=== PATIENT | female | born 1980 | race Caucasian/White ===

== ENCOUNTER → 2016-12-06 | Outpatient (CLI) | payer OTHER ==
--- NOTE | 2016-12-06 07:54 | MM ---
Reason for exam: follow-up at short interval from prior study. Last mammogram was performed 5 months ago. History: Patient is nulliparous. Family history of breast cancer in grandmother at age 80. Taking hormonal contraceptives beginning at age 16. Physical Findings: Nurse did not find any significant physical abnormalities on exam. MG 3D Diag Mammo W/Cad LT CC and MLO view(s) were taken of the left breast. Prior study comparison: July 11, 2016, bilateral MG 3d diag mammo w/cad MIKEL. The breast tissue is heterogeneously dense. This may lower the sensitivity of mammography. Focal asymmetry similar to 07/11/16. No significant new findings when compared with previous films. These results were verbally communicated with the patient and result sheet given to the patient on 12/06/16. ASSESSMENT: Probably benign, BI-RAD 3 RECOMMENDATION: Follow-up diagnostic mammogram of both breasts in 6 months.
== END | disposition home or self-care (01) ==
LOC: RADMAMWWP 06:47
PROVIDERS: ATTEND Family Medicine
DX: R92.2 Inconclusive mammogram (principal)
CPT/HCPCS: G0206; G0279

== ENCOUNTER → 2017-05-04 | Outpatient (CLI) | payer OTHER ==
[2017-05-04 12:30] LABS: Cholesterol 183 mg/dL (<200); Glucose 77 mg/dL (74-99); HDL Cholesterol 94 mg/dL (40-60)
== END | disposition home or self-care (01) ==
LOC: LABWHC1 11:43
PROVIDERS: ATTEND Family Medicine
DX: Z00.00 Encounter for general adult medical examination without abnormal findings (principal)
CPT/HCPCS: 36415; 80061; 82947

== ENCOUNTER → 2017-06-10 | Outpatient (CLI) | payer OTHER ==
--- NOTE | 2017-06-14 12:15 | MM ---
Reason for exam: additional evaluation requested from prior study. Last mammogram was performed 6 months ago. History: Patient is nulliparous. Family history of breast cancer in grandmother at age 80. Taking hormonal contraceptives beginning at age 16. Physical Findings: Nurse Summary: 1cm nodule in the left breast at 1 o'clock (nurse dw). MG 3D Diag Mammo W/Cad MIKEL Bilateral CC and MLO view(s) were taken. Prior study comparison: December 06, 2016, left breast MG 3d diag mammo w/cad LT. July 11, 2016, bilateral MG 3d diag mammo w/cad MIKEL. The breast tissue is heterogeneously dense. This may lower the sensitivity of mammography. No suspicious abnormality. These results were verbally communicated with the patient and result sheet given to the patient on 06/10/17. ASSESSMENT: Incomplete: need additional imaging evaluation, BI-RAD 0 RECOMMENDATION: Ultrasound of the left breast. (palpable)
--- NOTE | 2017-06-14 12:16 | USB ---
Reason for exam: additional evaluation requested from abnormal screening. History: Patient is nulliparous. Family history of breast cancer in grandmother at age 80. Taking hormonal contraceptives beginning at age 16. US Breast Limited LT Left breast ultrasound demonstrates ductal ectasia at the nipple. These results were verbally communicated with the patient and result sheet given to the patient on 06/10/17. ASSESSMENT: Negative, BI-RAD 1 RECOMMENDATION: Routine screening mammogram of both breasts at age 40.
== END | disposition home or self-care (01) ==
LOC: RADMAMWWP 15:25
PROVIDERS: ATTEND Family Medicine
DX: R92.8 Other abnormal and inconclusive findings on diagnostic imaging of breast (principal)
CPT/HCPCS: 76642; G0204; G0279

== ENCOUNTER → 2018-01-27 | Outpatient (CLI) | payer OTHER ==
[2018-01-27 15:53] VITALS: BP 126/81; PULSE 87; RESP 18; TEMP 98.4; BMI 33.0
--- NOTE | 2018-01-27 16:00 | P.HPBAR ---
Bariatric H&P - History & Physicial H&P Date: 01/27/18 History & Physicial: Visit/CC: wants a fill Patient initial contact: Initial weight: Initial weight in pounds: Height: 5 ft 2.75 in Initial BMI: Last weight: 66 in October 2015 Current weight: 84.005 kg Current weight in pounds: 185.20 Current BMI: 33.0 [place] body weight (based on NIH guidelines): 51.596 kg Excess body weight loss: The patient is a 38 year-old F who presents for Bariatric Assessment. The patient presents fill. She is hungry and is gaining weight. Past Medical History Past Medical History: Thyroid Disorder History of Any Multi-Drug Resistant Organisms: None Reported Past Surgical History: Bariatric Surgery, Cholecystectomy, Tonsillectomy Additional Past Surgical History / Comment(s): lap band surgery 2009 Past Anesthesia/Blood Transfusion Reactions: No Reported Reaction Smoking Status: Never smoker Surgical - Exam Vital Signs Temp Pulse Resp BP 98.4 F 87 18 126/81 01/27/18 15:48 01/27/18 15:48 01/27/18 15:48 01/27/18 15:48 - General well developed, no distress - Eyes PERRL - ENT normal pinna - Neck no masses - Respiratory normal expansion - Cardiovascular Rhythm: regular - Abdomen Abdomen: soft, non tender Bariatric Assessment & Plan Plan: Patient's lap incision just. She had 1 mL added to her band. She currently 7 mL in the band. She was ill drink water without difficulty. She'll follow-up in 4 weeks. Bariatric Checklist Checklist: Plan: Checklist: EGD: 1. Hiatal hernia: 2. H. Pylori: HgbA1c: Vitamin D: Smoking: Never smoker Primary care physician referral: Dr Kristy Burgess Psychiatry clearance: Cardiology clearance: Sleep study: Diet journal: VTE risk score: VTE risk level: Rehab needs at discharge:
== END | disposition home or self-care (01) ==
LOC: BARWHC3 15:39
PROVIDERS: ATTEND Surgery
DX: Z48.815 Encounter for surgical aftercare following surgery on the digestive system (principal); Z98.84 Bariatric surgery status
CPT/HCPCS: 99202

== ENCOUNTER → 2018-02-24 | Outpatient (CLI) | payer OTHER ==
[2018-02-24 13:41] VITALS: BP 104/67; PULSE 86; RESP 16; TEMP 98.3; BMI 32.3
--- NOTE | 2018-02-24 15:49 | P.HPBAR ---
Bariatric H&P - History & Physicial H&P Date: 02/24/18 History & Physicial: Visit/CC: band adj Patient initial contact: Initial weight: 83.971 kg Initial weight in pounds: 185.13 Height: 5 ft 2.75 in Initial BMI: 33.0 Last weight: Current weight: 82.27 kg Current weight in pounds: 181.38 Current BMI: 32.3 [place] body weight (based on NIH guidelines): 51.596 kg Excess body weight loss: 5.2% The patient is a 38 year-old F who presents for Bariatric Assessment. The patient is requesting a fill of her band. She currently feels hungry. Past Medical History Past Medical History: Thyroid Disorder History of Any Multi-Drug Resistant Organisms: None Reported Past Surgical History: Bariatric Surgery, Cholecystectomy, Tonsillectomy Additional Past Surgical History / Comment(s): lap band surgery 2009 Past Anesthesia/Blood Transfusion Reactions: No Reported Reaction Smoking Status: Never smoker Surgical - Exam Vital Signs Temp Pulse Resp BP 98.3 F 86 16 104/67 02/24/18 13:39 02/24/18 13:39 02/24/18 13:39 02/24/18 13:39 - General well developed, no distress - Eyes PERRL - ENT normal pinna - Cardiovascular Rhythm: regular - Abdomen Abdomen: soft, non tender Bariatric Assessment & Plan Plan: The patient LAP-BAND was adjusted. She had 0.5 mL added to her band. She currently has 7.5 in the.. She was opened require without difficulty. She'll follow-up in 4 weeks. Bariatric Checklist Checklist: Plan: Checklist: EGD: 1. Hiatal hernia: 2. H. Pylori: HgbA1c: Vitamin D: Smoking: Never smoker Primary care physician referral: Dr Kristy Burgess Psychiatry clearance: Cardiology clearance: Sleep study: Diet journal: VTE risk score: VTE risk level: Rehab needs at discharge:
== END | disposition home or self-care (01) ==
LOC: BARWHC3 12:49
PROVIDERS: ATTEND Surgery
DX: Z46.51 Encounter for fitting and adjustment of gastric lap band (principal); T73.0XXA Starvation, initial encounter; Z98.84 Bariatric surgery status; Z90.49 Acquired absence of other specified parts of digestive tract
CPT/HCPCS: 99212

== ENCOUNTER → 2018-03-17 | Outpatient (CLI) | payer OTHER ==
[2018-03-17 13:41] VITALS: BP 116/66; PULSE 97; RESP 14; TEMP 98.4; BMI 31.2
--- NOTE | 2018-03-17 15:00 | P.HPBAR ---
Bariatric H&P - History & Physicial H&P Date: 03/17/18 History & Physicial: Visit/CC: band adjustment (needs small amount removed) Patient initial contact: Initial weight: 83.971 kg Initial weight in pounds: 185.12 Height: 5 ft 2.75 in Initial BMI: 33.0 Last weight: Current weight: 79.424 kg Current weight in pounds: 175.10 Current BMI: 31.2 [place] body weight (based on NIH guidelines): 51.596 kg Excess body weight loss: 14.0% The patient is a 38 year-old F who presents for Bariatric Assessment. Patient presents today for LAP-BAND follow-up. She has complaints of some dysphagia. Past Medical History Past Medical History: Thyroid Disorder History of Any Multi-Drug Resistant Organisms: None Reported Past Surgical History: Bariatric Surgery, Cholecystectomy, Tonsillectomy Additional Past Surgical History / Comment(s): lap band surgery 2009 Past Anesthesia/Blood Transfusion Reactions: No Reported Reaction Smoking Status: Never smoker Surgical - Exam Vital Signs Temp Pulse Resp BP 98.4 F 97 14 116/66 03/17/18 13:29 03/17/18 13:29 03/17/18 13:29 03/17/18 13:29 - General well developed, no distress - Abdomen Abdomen: soft, non tender Bariatric Assessment & Plan Plan: Patient LAP-BAND was adjusted. She had 0.3 mL removed from the band. She will follow-up in 4 weeks.. Patient was able to include developed. She currently is 7.2 mL in the band. Bariatric Checklist Checklist: Plan: Checklist: EGD: 1. Hiatal hernia: 2. H. Pylori: HgbA1c: Vitamin D: Smoking: Never smoker Primary care physician referral: Dr Kristy Burgess Psychiatry clearance: Cardiology clearance: Sleep study: Diet journal: VTE risk score: VTE risk level: Rehab needs at discharge:
== END | disposition home or self-care (01) ==
LOC: BARWHC3 13:06
PROVIDERS: ATTEND Surgery
DX: Z48.815 Encounter for surgical aftercare following surgery on the digestive system (principal); Z98.84 Bariatric surgery status
CPT/HCPCS: 99212

== ENCOUNTER → 2018-05-01 | Outpatient (CLI) | payer OTHER ==
--- NOTE | 2018-05-01 11:52 | XR ---
EXAMINATION TYPE: XR chest 2V DATE OF EXAM: 05/01/2018 COMPARISON: NONE HISTORY: Cough TECHNIQUE: Frontal and lateral views of the chest are obtained. FINDINGS: There is no focal air space opacity, pleural effusion, or pneumothorax seen. The cardiac silhouette size is within normal limits. The osseous structures are intact. Patient is post lap ban d. There may be a slight spinal curvature. Surgical clips present in the right upper quadrant. There is bronchial wall thickening. IMPRESSION: Correlate for bronchitis, reactive airways disease, follow-up as indicated
== END | disposition home or self-care (01) ==
LOC: RADXRMAIN 08:14
PROVIDERS: ATTEND Family Medicine
DX: R05 Cough (principal)
CPT/HCPCS: 71046

== ENCOUNTER → 2019-04-13 | Outpatient (CLI) | payer OTHER ==
[2019-04-13 15:57] VITALS: BP 132/83; PULSE 80; RESP 16; TEMP 98.3; BMI 31.6
--- NOTE | 2019-04-13 16:06 | P.HPBAR ---
Bariatric H&P - History & Physicial H&P Date: 04/13/19 History & Physicial: Visit/CC: Band follow-up having problems Patient initial contact: Initial weight: 83.971 kg Initial weight in pounds: 185.12 Height: 5 ft 2.75 in Initial BMI: 33.0 Last weight: Current weight: 80.286 kg Current weight in pounds: 177.00 Current BMI: 31.6 [place] body weight (based on NIH guidelines): 51.596 kg Excess body weight loss: 11.3% The patient is a 39 year-old F who presents for Bariatric Assessment. Patient presents today for lab band follow. She's had issues with dysphagia. Past Medical History Past Medical History: Thyroid Disorder History of Any Multi-Drug Resistant Organisms: None Reported Past Surgical History: Bariatric Surgery, Cholecystectomy, Tonsillectomy Additional Past Surgical History / Comment(s): lap band surgery 2009 Past Anesthesia/Blood Transfusion Reactions: No Reported Reaction Past Psychological History: No Psychological Hx Reported Smoking Status: Never smoker Past Alcohol Use History: None Reported Past Drug Use History: None Reported Surgical - Exam Vital Signs Temp Pulse Resp BP 98.3 F 80 16 132/83 04/13/19 15:54 04/13/19 15:54 04/13/19 15:54 04/13/19 15:54 - General well developed, well nourished, no distress - Abdomen Abdomen: soft, non tender Bariatric Assessment & Plan Plan: Patient LAP-BAND was accessed. 3 mL remove her band. She currently has 4.2 mL in the band. She'll follow-up in 2-4 weeks. Bariatric Checklist Checklist: Plan: Checklist: EGD: 1. Hiatal hernia: 2. H. Pylori: HgbA1c: Vitamin D: Smoking: Never smoker Primary care physician referral: Dr Kristy Burgess Psychiatry clearance: Cardiology clearance: Sleep study: Diet journal: VTE risk score: VTE risk level: Rehab needs at discharge:
== END ==
LOC: BARWHC3 14:43
PROVIDERS: ATTEND Surgery
DX: Z48.815 Encounter for surgical aftercare following surgery on the digestive system (principal); Z98.84 Bariatric surgery status; Z90.49 Acquired absence of other specified parts of digestive tract
CPT/HCPCS: 99212

== ENCOUNTER 2019-04-14 16:13 | Emergency (ER) | payer OTHER ==
[2019-04-14 16:38] VITALS: TEMP 98.4
--- NOTE | 2019-04-14 16:51 | ED ---
Chest Pain HPI - General Chief Complaint: Chest Pain Stated Complaint: CHEST PAIN Time Seen by Provider: 04/14/19 16:42 Source: patient Mode of arrival: wheelchair Limitations: no limitations - History of Present Illness Initial Comments: This is a 39-year-old female the ER for evaluation. She has had pain and presents today for evaluation presented with chest pain chest pain anterior left-sided going into left jaw. Patient's pain is been intermittent throughout the day. Patient was not doing any abnormal activity. Has no significant family history of heart disease. Patient does herself is history of LAP-BAND surgery, no history of smoking, no high cholesterol no diabetes no history of high blood pressure. Patient's pain is not currently there, no shortness of breath and no diaphoresis. MD Complaint: chest pain -: hour(s) Onset: during rest, during exertion Pain Location: substernal, left chest Pain Radiation: LUE, jaw/teeth Severity: moderate Severity scale (1-10): 4 Quality: tightness, aching Consistency: intermittent Improves With: nothing Worsens With: nothing Anginal Symptoms: nausea, other (Anxious) Treatments Prior to Arrival: none - Related Data Home Medications Medication Instructions Recorded Confirmed Levothyroxine Sodium [Synthroid] 112 mcg PO DAILY 01/24/18 04/14/19 Multivitamins, Thera [Multivitamin 1 tab PO HS 01/24/18 04/14/19 (formulary)] Cetirizine HCl [Zyrtec] 10 mg PO HS 04/14/19 04/14/19 Allergies Allergy/AdvReac Type Severity Reaction Status Date / Time codeine Allergy Rash/Hives Verified 04/14/19 17:05 Penicillins Allergy Rash/Hives Verified 04/14/19 17:05 Review of Systems ROS Statement: Those systems with pertinent positive or pertinent negative responses have been documented in the HPI. ROS Other: All systems not noted in ROS Statement are negative. EKG Findings - EKG Comments: EKG Findings:: EKG shows sinus rhythm rate of 81, [place] 120, QRS 92, QTc 448 Past Medical History Past Medical History: Thyroid Disorder History of Any Multi-Drug Resistant Organisms: None Reported Past Surgical History: Bariatric Surgery, Cholecystectomy, Tonsillectomy Additional Past Surgical History / Comment(s): lap band surgery 2009 Past Anesthesia/Blood Transfusion Reactions: No Reported Reaction Past Psychological History: No Psychological Hx Reported Smoking Status: Never smoker Past Alcohol Use History: None Reported Past Drug Use History: None Reported General Exam Limitations: no limitations General appearance: alert, in no apparent distress Head exam: Present: atraumatic, normocephalic, normal inspection Eye exam: Present: normal appearance, PERRL, EOMI. Absent: scleral icterus, conjunctival injection, periorbital swelling ENT exam: Present: normal exam, mucous membranes moist Neck exam: Present: normal inspection. Absent: tenderness, meningismus, lymphadenopathy Respiratory exam: Present: normal lung sounds bilaterally. Absent: respiratory distress, wheezes, rales, rhonchi, stridor Cardiovascular Exam: Present: regular rate, normal rhythm, normal heart sounds. Absent: systolic murmur, diastolic murmur, rubs, gallop, clicks GI/Abdominal exam: Present: soft, normal bowel sounds. Absent: distended, tenderness, guarding, rebound, rigid Extremities exam: Present: normal inspection, full ROM, normal capillary refill. Absent: tenderness, pedal edema, joint swelling, calf tenderness Back exam: Present: normal inspection Neurological exam: Present: alert, oriented X3, CN II-XII intact Psychiatric exam: Present: normal affect, normal mood Skin exam: Present: warm, dry, intact, normal color. Absent: rash Course Vital Signs 04/14/19 04/14/19 04/14/19 16:36 17:04 17:30 Temperature 98.4 F Pulse Rate 93 95 85 Respiratory 16 12 14 Rate Blood Pressure 130/75 O2 Sat by Pulse 100 100 100 Oximetry 04/14/19 04/14/19 04/14/19 18:00 18:52 19:00 Temperature Pulse Rate 91 83 80 Respiratory 16 17 18 Rate Blood Pressure O2 Sat by Pulse 100 100 100 Oximetry 04/14/19 19:18 Temperature Pulse Rate 84 Respiratory 16 Rate Blood Pressure 100/62 O2 Sat by Pulse 100 Oximetry - Reevaluation(s) Reevaluation #1: 04/14/19 16:50 Medical records reviewed Reevaluation #2: 04/14/19 20:25 Patient remains without chest pain Reevaluation #3: 04/14/19 20:25 Spoke with patient at length regarding risks and benefits days and cardiology versus discharge, patient prefers discharge at this time will return if symptoms recur Chest Pain MDM - MDM 39-year-old female the ER with doses of chest pain today one occurring at noon one occurring around 4:00 left-sided into jaw sharp second time is about 20 minutes symptoms resolved upon arrival to ER patient was chest pain-free. Throughout entire ER stay currently chest pain-free. Patient does not want stay in hospital for further evaluation currently. Patient has normal troponin, normal EKG and negative CTA of chest. Patient will be discharged home Disposition Clinical Impression: Chest pain Disposition: HOME SELF-CARE Condition: Good Instructions (If sedation given, give patient instructions): Chest Pain (ED) Is patient prescribed a controlled substance at d/c from ED?: No Referrals: Ted Vides MD [Primary Care Provider] - 1-2 days
[2019-04-14 17:28] LABS: Basophils # (A) 0.1 k/uL (0-0.2); Basophils % (A) 1 %; Eosinophils # (A) 0.3 k/uL (0-0.7); Eosinophils % (A) 3 %; HCT 41.2 % (34.0-46.0); HGB 13.9 gm/dL (11.4-16.0); Lymphocytes # (A) 2.2 k/uL (1.0-4.8); Lymphocytes % (A) 28 %; MCH 27.8 pg (25.0-35.0); MCHC 33.7 g/dL (31.0-37.0); MCV 82.5 fL (80.0-100.0); Mean Platelet Volume 7.1; Monocytes # (A) 0.4 k/uL (0-1.0); Monocytes % (A) 6 %; Neutrophils # (A) 4.9 k/uL (1.3-7.7); Neutrophils % (A) 61 %; Platelet Count 255 k/uL (150-450); RBC 4.99 m/uL (3.80-5.40)
[2019-04-14 17:42] LABS: Partial Thromboplastin Time 25.3 sec (22.0-30.0); Prothrombin Time 10.5 sec (9.0-12.0)
[2019-04-14 17:44] LABS: ALT 17 U/L (9-52); AST 28 U/L (14-36); African American GFR (CKD) >90 (>60 ml/min/1.73 sqM); Albumin 4.7 g/dL (3.5-5.0); Alkaline Phosphatase 60 U/L (38-126); Anion Gap 13 mmol/L; Blood Urea Nitrogen 11 mg/dL (7-17); Calcium 9.7 mg/dL (8.4-10.2); Carbon Dioxide 19 mmol/L (22-30); Chloride 106 mmol/L (98-107); Glucose 93 mg/dL (74-99); Magnesium 1.9 mg/dL (1.6-2.3); Potassium 4.2 mmol/L (3.5-5.1); Sodium 138 mmol/L (137-145); Total Bilirubin 0.7 mg/dL (0.2-1.3)
[2019-04-14 17:48] LABS: D-Dimer 0.76 mg/L FEU (<0.60)
--- NOTE | 2019-04-14 20:10 | CT ---
EXAMINATION TYPE: CT angio chest with contrast and with 3-D reconstruction renderings DATE OF EXAM: 04/14/2019 6:57 PM COMPARISON: None HISTORY: Pain CT DLP: 349.9 mGycm Automated exposure control for dose reduction was used. CONTRAST: CTA technique. 100 mL of Isovue 370, pulmonary embolism protocol. Three-D reconstructions. FINDINGS: LUNGS: The lungs are grossly clear, there is no concerning parenchymal mass or nodule identified. The re is no pleural effusion or pneumothorax seen. The tracheobronchial tree is patent. MEDIASTINUM: There is satisfactory enhancement of the pulmonary artery and its branches, there is no CT evidence for pulmonary embolism. No acute aortic findings. There are no greater than 1 cm hilar or mediastinal lymph nodes. There is mild cardiomegaly, no pericardial effusion. The thoracic esophagus is patulous throughout its thoracic extent, a nonspecific finding. OTHER: No additional significant abnormality is seen. IMPRESSION: NEGATIVE FOR PULMONARY EMBOLI OR OTHER ACUTE CHEST PROCESS.
[2019-04-14 20:44] VITALS: BP 118/62; PULSE 85; RESP 18
== END 2019-04-14 20:41 | disposition home or self-care (01) ==
LOC: EC 16:13
DX: R07.9 Chest pain, unspecified (principal); R11.0 Nausea; E07.9 Disorder of thyroid, unspecified; Z88.0 Allergy status to penicillin; Z88.5 Allergy status to narcotic agent; Z98.84 Bariatric surgery status; Z90.89 Acquired absence of other organs
CPT/HCPCS: 36415; 93005; 85379; 83880; 80053; 83690; 83735; 84484; 85025; 85610; 85730; 71275; 99285; Q9967

== ENCOUNTER → 2019-05-11 | Outpatient (CLI) | payer OTHER ==
[2019-05-11 15:42] VITALS: BP 121/82; PULSE 82; RESP 16; TEMP 98.5; BMI 32.8
--- NOTE | 2019-05-14 11:00 | P.HPBAR ---
Bariatric H&P - History & Physicial H&P Date: 05/11/19 History & Physicial: Visit/CC: Band Adj Patient initial contact: Initial weight: 83.971 kg Initial weight in pounds: 185.12 Height: 5 ft 2.75 in Initial BMI: 33.0 Last weight: Current weight: 83.461 kg Current weight in pounds: 184.00 Current BMI: 32.8 [place] body weight (based on NIH guidelines): 51.596 kg Excess body weight loss: 1.5% The patient is a 39 year-old F who presents for Bariatric Assessment. Patient presents today for LAP-BAND adjustment. She currently is hungry. Past Medical History Past Medical History: Thyroid Disorder History of Any Multi-Drug Resistant Organisms: None Reported Past Surgical History: Bariatric Surgery, Cholecystectomy, Tonsillectomy Additional Past Surgical History / Comment(s): lap band surgery 2009 Past Anesthesia/Blood Transfusion Reactions: No Reported Reaction Past Psychological History: No Psychological Hx Reported Smoking Status: Never smoker Past Alcohol Use History: None Reported Past Drug Use History: None Reported Surgical - Exam Vital Signs Temp Pulse Resp BP 98.5 F 82 16 121/82 05/11/19 15:40 05/11/19 15:40 05/11/19 15:40 05/11/19 15:40 - General well developed, well nourished - Abdomen Abdomen: soft, non tender Bariatric Assessment & Plan Plan: Patient's LAP-BAND was just. She has 1 mL added to the band. She can is 5.2 mL in the band. She'll follow-up in 4 weeks. Bariatric Checklist Checklist: Plan: Checklist: EGD: 1. Hiatal hernia: 2. H. Pylori: HgbA1c: Vitamin D: Smoking: Never smoker Primary care physician referral: Dr Kristy Burgess Psychiatry clearance: Cardiology clearance: Sleep study: Diet journal: VTE risk score: VTE risk level: Rehab needs at discharge:
== END | disposition home or self-care (01) ==
LOC: BARWHC3 14:45
PROVIDERS: ATTEND Surgery
DX: Z46.51 Encounter for fitting and adjustment of gastric lap band (principal); Z98.84 Bariatric surgery status; Z90.49 Acquired absence of other specified parts of digestive tract; Z90.89 Acquired absence of other organs
CPT/HCPCS: 99212

== ENCOUNTER → 2019-09-28 | Outpatient (CLI) | payer OTHER ==
[2019-09-28 14:10] VITALS: BP 113/76; PULSE 88; RESP 16; TEMP 98; BMI 35.6
--- NOTE | 2019-10-05 14:38 | P.HPBAR ---
Bariatric H&P - History & Physicial H&P Date: 09/28/19 History & Physicial: Visit/CC: band adj Patient initial contact: Initial weight: 83.971 kg Initial weight in pounds: 185.12 Height: 5 ft 2.75 in Initial BMI: 33.0 Last weight: Current weight: 90.718 kg Current weight in pounds: 200.00 Current BMI: 35.6 [place] body weight (based on NIH guidelines): 51.596 kg Excess body weight loss: The patient is a 39 year-old F who presents for Bariatric Assessment. Patient presents today for her LAP-BAND adjustment. She is currently hungry and requesting a fill. Past Medical History Past Medical History: Thyroid Disorder History of Any Multi-Drug Resistant Organisms: None Reported Past Surgical History: Bariatric Surgery, Cholecystectomy, Tonsillectomy Additional Past Surgical History / Comment(s): lap band surgery 2009 Past Anesthesia/Blood Transfusion Reactions: No Reported Reaction Smoking Status: Never smoker Surgical - Exam Vital Signs Temp Pulse Resp BP 98 F 88 16 113/76 09/28/19 14:08 09/28/19 14:08 09/28/19 14:08 09/28/19 14:08 - General well developed, well nourished, no distress - Eyes PERRL - ENT normal pinna - Neck no masses - Respiratory normal expansion - Cardiovascular Rhythm: regular - Abdomen Abdomen: soft, non tender Bariatric Assessment & Plan Plan: Patient's lap band adjustment. She had 0.5 mL added to her band. She'll follow-up in 4 weeks. Bariatric Checklist Checklist: Plan: Checklist: EGD: 1. Hiatal hernia: 2. H. Pylori: HgbA1c: Vitamin D: Smoking: Never smoker Primary care physician referral: Dr Kristy Burgess Psychiatry clearance: Cardiology clearance: Sleep study: Diet journal: VTE risk score: VTE risk level: Rehab needs at discharge:
== END | disposition home or self-care (01) ==
LOC: BARWHC3 13:43
PROVIDERS: ATTEND Surgery
DX: Z46.51 Encounter for fitting and adjustment of gastric lap band (principal); Z98.84 Bariatric surgery status; Z90.49 Acquired absence of other specified parts of digestive tract
CPT/HCPCS: 99212

== ENCOUNTER → 2020-03-30 | Outpatient (CLI) | payer OTHER ==
[2020-03-30 10:57] LABS: Basophils # (A) 0.1 k/uL (0-0.2); Basophils % (A) 1 %; Eosinophils # (A) 0.4 k/uL (0-0.7); Eosinophils % (A) 5 %; HCT 42.3 % (34.0-46.0); HGB 13.4 gm/dL (11.4-16.0); Lymphocytes # (A) 2.6 k/uL (1.0-4.8); Lymphocytes % (A) 33 %; MCH 27.1 pg (25.0-35.0); MCHC 31.7 g/dL (31.0-37.0); MCV 85.3 fL (80.0-100.0); Mean Platelet Volume 7.3; Monocytes # (A) 0.5 k/uL (0-1.0); Monocytes % (A) 7 %; Neutrophils % (A) 52 %; Platelet Count 284 k/uL (150-450); RBC 4.96 m/uL (3.80-5.40); RDW 12.6 % (11.5-15.5); WBC 7.7 k/uL (3.8-10.6)
[2020-03-30 16:54] LABS: African American GFR (CKD) 106.9 (60.0-200.0); Albumin 4.4 g/dL (3.80-4.90); Anion Gap 11.2 mmol/L (4.00-12.00); BUN/Creat Ratio 13.75 Ratio (12.00-20.00); Calcium 9.3 mg/dL (8.7-10.3); Carbon Dioxide 22.8 mmol/L (21.6-31.8); Chol/HDL Ratio 3.2; Globulin 2.2 g/dL (1.6-3.3); LDL Cholesterol,Calculated 105.4 mg/dL (0.0-131.0); Non-African American GFR(CKD) 92.2 (60.0-200.0); Potassium 4.2 mmol/L (3.5-5.5); Total Bilirubin 0.6 mg/dL (0.3-1.2); Total Protein 6.6 g/dL (6.2-8.2); VLDL Calculation 26.6 mg/dL (5.00-40.00)
== END | disposition home or self-care (01) ==
LOC: LABWHC1 09:19
PROVIDERS: ATTEND Family Medicine
DX: Z00.00 Encounter for general adult medical examination without abnormal findings (principal); E03.9 Hypothyroidism, unspecified
CPT/HCPCS: 36415; 80053; 80061; 84443; 85025

== ENCOUNTER → 2020-04-22 | Outpatient (CLI) | payer OTHER ==
--- NOTE | 2020-04-27 09:13 | MM ---
Reason for exam: screening (asymptomatic). Last mammogram was performed 2 years and 10 months ago. History: Patient is nulliparous. Family history of breast cancer in grandmother at age 80. Taking hormonal contraceptives beginning at age 16. Physical Findings: A clinical breast exam by your physician is recommended on an annual basis and results should be correlated with mammographic findings. MG 3D Screening Mammo W/Cad Bilateral CC and MLO view(s) were taken. Prior study comparison: June 10, 2017, bilateral MG 3d diag mammo w/cad MIKEL. December 06, 2016, left breast MG 3d diag mammo w/cad LT. The breast tissue is heterogeneously dense. This may lower the sensitivity of mammography. Focal asymmetry right lower MLO view. This finding is changed when compared with previous exams. ASSESSMENT: Probably benign, BI-RAD 3 RECOMMENDATION: Follow-up diagnostic mammogram of the right breast in 6 months.
== END | disposition home or self-care (01) ==
LOC: RADMAMWWP 07:39
PROVIDERS: ATTEND Family Medicine
DX: Z12.31 Encounter for screening mammogram for malignant neoplasm of breast (principal)
CPT/HCPCS: 77063; 77067

== ENCOUNTER → 2020-09-07 | Outpatient (CLI) | payer OTHER ==
--- NOTE | 2020-09-08 08:46 | MM ---
Reason for exam: follow-up at short interval from prior study. Last mammogram was performed 5 months ago. History: Patient is nulliparous. Family history of breast cancer in grandmother at age 80. Took hormonal contraceptives for 10 years beginning at age 16. Physical Findings: Nurse did not find any significant physical abnormalities on exam. MG 3D Diag Mammo W/Cad RT CC, MLO, and spot compression CC view(s) were taken of the right breast. Prior study comparison: April 22, 2020, bilateral MG 3d screening mammo w/cad. June 10, 2017, bilateral MG 3d diag mammo w/cad MIKEL. The breast tissue is heterogeneously dense. This may lower the sensitivity of mammography. Developing asymmetry medial anterior MLO, not on compression. Focal asymmetry lower MLO, increased density, decreased on compression. These results were verbally communicated with the patient and result sheet given to the patient on 09/07/20. ASSESSMENT: Probably benign, BI-RAD 3 RECOMMENDATION: Follow-up diagnostic mammogram of both breasts in 6 months.
== END | disposition home or self-care (01) ==
LOC: RADMAMWWP 14:06
PROVIDERS: ATTEND Obstetrics & Gynecology
DX: R92.8 Other abnormal and inconclusive findings on diagnostic imaging of breast (principal)
CPT/HCPCS: 77061; 77065

== ENCOUNTER → 2021-02-10 | Outpatient (CLI) | payer OTHER ==
--- NOTE | 2021-02-13 08:03 | MM ---
Reason for exam: follow-up at short interval from prior study. Last mammogram was performed 5 months ago. History: Patient is nulliparous. Family history of breast cancer in grandmother at age 80. Took hormonal contraceptives for 10 years beginning at age 16. Physical Findings: Nurse did not find any significant physical abnormalities on exam. MG 3D Diag Mammo W/Cad MIKEL Bilateral CC and MLO view(s) were taken. Prior study comparison: September 07, 2020, right breast MG 3d diag mammo w/cad RT. April 22, 2020, bilateral MG 3d screening mammo w/cad. The breast tissue is heterogeneously dense. This may lower the sensitivity of mammography. These results were verbally communicated with the patient and result sheet given to the patient on 02/10/21. ASSESSMENT: Negative, BI-RAD 1 RECOMMENDATION: Routine screening mammogram of both breasts in 1 year.
== END | disposition home or self-care (01) ==
LOC: RADMAMWWP 14:17
PROVIDERS: ATTEND Surgery
DX: R92.2 Inconclusive mammogram (principal); Z80.3 Family history of malignant neoplasm of breast
CPT/HCPCS: 77062; 77066

== ENCOUNTER → 2021-05-30 | Outpatient (CLI) | payer BC | END | disposition home or self-care (01) | LOC: LABWHC1 07:35 | PROVIDERS: ATTEND Family Medicine | DX: E55.9 Vitamin D deficiency, unspecified (principal) | CPT/HCPCS: 36415; 82306 ==

== ENCOUNTER → 2021-09-21 | Outpatient (CLI) | payer OTHER | END | disposition home or self-care (01) | LOC: LABWHC1 12:57 | PROVIDERS: ATTEND Family Medicine | DX: E55.9 Vitamin D deficiency, unspecified (principal) | CPT/HCPCS: 36415; 82306 ==

== ENCOUNTER 2021-10-05 08:40 | Emergency (ER) | payer OTHER ==
[2021-10-05] MEDS ORDERED: SODIUM CHLORIDE 0.9% 500 ML 500 ML IV STA (08:54)
--- NOTE | 2021-10-05 08:59 | ED ---
General Adult HPI - General Chief complaint: Arrhythmia/Palpitations Stated complaint: fast heart rate Time Seen by Provider: 10/05/21 08:45 Source: patient, RN notes reviewed, old records reviewed Mode of arrival: ambulatory Limitations: no limitations - History of Present Illness Initial comments: This is a 41-year-old female presents emergency Department states that for the last 3 or 4 days she's been having palpitations. Patient states her heart rate gets up to 137 beats a minute. Patient states she was seen at [facility] couple of days ago and since he continues she states she decided come in here. Patient denies any drug use. Patient states she does have a thyroid issue and takes thyroid medication. Patient denies any recent fever chills or cough. Patient denies any chest pain or shortness of breath. Patient denies abdominal pain patient denies nausea vomiting or diarrhea. Patient denies any swelling to legs or calf tenderness. - Related Data Home Medications Medication Instructions Recorded Confirmed Multivitamins, Thera [Multivitamin 1 tab PO W/SUPPER 01/24/18 10/05/21 (formulary)] Cetirizine HCl [Zyrtec] 10 mg PO DAILY 04/14/19 10/05/21 Ergocalciferol [Vitamin D2 (1250 1,250 mcg PO NGUYEN 10/05/21 10/05/21 Mcg = 42303 Iu)] Levothyroxine Sodium [Synthroid] 100 mcg PO DAILY 10/05/21 10/05/21 Metoprolol Succinate [Toprol XL] 50 mg PO DAILY PRN 10/05/21 10/05/21 Allergies Allergy/AdvReac Type Severity Reaction Status Date / Time codeine Allergy Rash/Hives Verified 10/05/21 09:30 Penicillins Allergy Rash/Hives Verified 10/05/21 09:30 Review of Systems ROS Statement: Those systems with pertinent positive or pertinent negative responses have been documented in the HPI. ROS Other: All systems not noted in ROS Statement are negative. Past Medical History Past Medical History: Thyroid Disorder Additional Past Medical History / Comment(s): tachycardia History of Any Multi-Drug Resistant Organisms: None Reported Past Surgical History: Bariatric Surgery, Cholecystectomy, Tonsillectomy Additional Past Surgical History / Comment(s): lap band surgery 2009 Past Anesthesia/Blood Transfusion Reactions: No Reported Reaction Past Psychological History: No Psychological Hx Reported Smoking Status: Never smoker Past Alcohol Use History: None Reported Past Drug Use History: None Reported General Exam - General Exam Comments Initial Comments: GENERAL: Patient is well-developed and well-nourished. Patient is nontoxic and well-hydr ated and is in no acute distress. ENT: Neck is soft and supple. No significant lymphadenopathy is noted. Oropharynx is clear. Moist mucous membranes. Neck has full range of motion without eliciting any pain. EYES: The sclera were anicteric and conjunctiva were pink and moist. Extraocular mo vements were intact and pupils were equal round and reactive to light. Eyelids were unremarkable. PULMONARY: Unlabored respirations. Good breath sounds bilaterally. No audible rales rhonchi or wheezing was noted. CARDIOVASCULAR: Patient is tachycardic at about 120 beats a minute ABDOMEN: Soft and nontender with normal bowel sounds. SKIN: Skin is clear with no lesions or rashes and otherwise unremarkable. NEUROLOGIC: Patient is alert and oriented x3. Cranial nerves II through XII are grossly intact. Motor and sensory are also intact. Normal speech, volume and content. Symmetrical smile. MUSCULOSKELETAL: Normal extremities with adequate strength and full range of motion. No lower extremity swelling or edema. No calf tenderness. LYMPHATICS: No significant lymphadenopathy is noted PSYCHIATRIC: Normal psychiatric evaluation. Limitations: no limitations Course Vital Signs 10/05/21 10/05/21 08:43 11:40 Temperature 97.5 F L Pulse Rate 116 H 86 Respiratory 20 18 Rate Blood Pressure 148/83 116/77 O2 Sat by Pulse 99 100 Oximetry Medical Decision Making - Medical Decision Making EKG shows sinus rhythm at 99 bpm MS interval 239 0 68 QT interval 341 QTC is 397 patient's EKG shows no ST segment elevation or depression. Patient's chest x-ray shows no acute abnormality. I will back into reevaluate the patient she stated she felt at her baseline no longer is feeling any palpitations. Patient will follow up with cardiology. - Lab Data Result diagrams: 10/05/21 09:08 10/05/21 09:08 Lab Results 10/05/21 10/05/21 10/05/21 Range/Units 09:08 09:08 09:08 WBC 9.8 (3.8-10.6) k/uL RBC 4.84 (3.80-5.40) m/uL Hgb 13.7 (11.4-16.0) gm/dL Hct 40.7 (34.0-46.0) % MCV 84.1 (80.0-100.0) fL MCH 28.4 (25.0-35.0) pg MCHC 33.8 (31.0-37.0) g/dL RDW 13.0 (11.5-15.5) % Plt Count 319 (150-450) k/uL MPV 7.7 Neutrophils % 75 % Lymphocytes % 18 % Monocytes % 5 % Eosinophils % 1 % Basophils % 0 % Neutrophils # 7.3 (1.3-7.7) k/uL Lymphocytes # 1.8 (1.0-4.8) k/uL Monocytes # 0.5 (0-1.0) k/uL Eosinophils # 0.1 (0-0.7) k/uL Basophils # 0.0 (0-0.2) k/uL PT 10.7 (9.0-12.0) sec INR 1.0 (<1.2) APTT 24.7 (22.0-30.0) sec Sodium (137-145) mmol/L Potassium (3.5-5.1) mmol/L Chloride (98-107) mmol/L Carbon Dioxide (22-30) mmol/L Anion Gap mmol/L BUN (7-17) mg/dL Creatinine (0.52-1.04) mg/dL Est GFR (CKD-EPI)AfAm (>60 ml/min/1.73 sqM) Est GFR (CKD-EPI)NonAf (>60 ml/min/1.73 sqM) Glucose (74-99) mg/dL Calcium (8.4-10.2) mg/dL Magnesium (1.6-2.3) mg/dL Total Bilirubin (0.2-1.3) mg/dL AST (14-36) U/L ALT (4-34) U/L Alkaline Phosphatase (38-126) U/L Troponin I (0.000-0.034) ng/mL Total Protein (6.3-8.2) g/dL Albumin (3.5-5.0) g/dL TSH (0.465-4.680) mIU/L Urine Color Light Yellow Urine Appearance Cloudy H (Clear) Urine pH 5.5 (5.0-8.0) Ur Specific [place] 1.002 (1.001-1.035) Urine Protein Negative (Negative) Urine Glucose (UA) Negative (Negative) Urine Ketones Negative (Negative) Urine Blood Negative (Negative) Urine Nitrite Negative (Negative) Urine Bilirubin Negative (Negative) Urine Urobilinogen <2.0 (<2.0) mg/dL Ur Leukocyte Esterase Large H (Negative) Urine WBC 10 H (0-5) /hpf Ur Squamous Epith Cells 5 H (0-4) /hpf Amorphous Sediment Occasional H (None) /hpf Urine Bacteria Few H (None) /hpf Urine Opiates Screen Not Detected (NotDetected) Ur Oxycodone Screen Not Detected (NotDetected) Urine Methadone Screen Not Detected (NotDetected) Ur Propoxyphene Screen Not Detected (NotDetected) Ur Barbiturates Screen Not Detected (NotDetected) U Tricyclic Antidepress Not Detected (NotDetected) Ur Phencyclidine Scrn Not Detected (NotDetected) Ur Amphetamines Screen Not Detected (NotDetected) U Methamphetamines Scrn Not Detected (NotDetected) U Benzodiazepines Scrn Not Detected (NotDetected) Urine Cocaine Screen Not Detected (NotDetected) U Marijuana (THC) Screen Not Detected (NotDetected) Coronavirus (PCR) (Not Detectd) 10/05/21 10/05/21 10/05/21 Range/Units 09:08 09:08 09:08 WBC (3.8-10.6) k/uL RBC (3.80-5.40) m/uL Hgb (11.4-16.0) gm/dL Hct (34.0-46.0) % MCV (80.0-100.0) fL MCH (25.0-35.0) pg MCHC (31.0-37.0) g/dL RDW (11.5-15.5) % Plt Count (150-450) k/uL MPV Neutrophils % % Lymphocytes % % Monocytes % % Eosinophils % % Basophils % % Neutrophils # (1.3-7.7) k/uL Lymphocytes # (1.0-4.8) k/uL Monocytes # (0-1.0) k/uL Eosinophils # (0-0.7) k/uL Basophils # (0-0.2) k/uL PT (9.0-12.0) sec INR (<1.2) APTT (22.0-30.0) sec Sodium 136 L (137-145) mmol/L Potassium 4.0 (3.5-5.1) mmol/L Chloride 108 H (98-107) mmol/L Carbon Dioxide 20 L (22-30) mmol/L Anion Gap 8 mmol/L BUN 10 (7-17) mg/dL Creatinine 0.68 (0.52-1.04) mg/dL Est GFR (CKD-EPI)AfAm >90 (>60 ml/min/1.73 sqM) Est GFR (CKD-EPI)NonAf >90 (>60 ml/min/1.73 sqM) Glucose 120 H (74-99) mg/dL Calcium 9.6 (8.4-10.2) mg/dL Magnesium 1.9 (1.6-2.3) mg/dL Total Bilirubin 0.7 (0.2-1.3) mg/dL AST 27 (14-36) U/L ALT 23 (4-34) U/L Alkaline Phosphatase 68 (38-126) U/L Troponin I <0.012 (0.000-0.034) ng/mL Total Protein 7.6 (6.3-8.2) g/dL Albumin 4.5 (3.5-5.0) g/dL TSH 2.880 (0.465-4.680) mIU/L Urine Color Urine Appearance (Clear) Urine pH (5.0-8.0) Ur Specific [place] (1.001-1.035) Urine Protein (Negative) Urine Glucose (UA) (Negative) Urine Ketones (Negative) Urine Blood (Negative) Urine Nitrite (Negative) Urine Bilirubin (Negative) Urine Urobilinogen (<2.0) mg/dL Ur Leukocyte Esterase (Negative) Urine WBC (0-5) /hpf Ur Squamous Epith Cells (0-4) /hpf Amorphous Sediment (None) /hpf Urine Bacteria (None) /hpf Urine Opiates Screen (NotDetected) Ur Oxycodone Screen (NotDetected) Urine Methadone Screen (NotDetected) Ur Propoxyphene Screen (NotDetected) Ur Barbiturates Screen (NotDetected) U Tricyclic Antidepress (NotDetected) Ur Phencyclidine Scrn (NotDetected) Ur Amphetamines Screen (NotDetected) U Methamphetamines Scrn (NotDetected) U Benzodiazepines Scrn (NotDetected) Urine Cocaine Screen (NotDetected) U Marijuana (THC) Screen (NotDetected) Coronavirus (PCR) Not Detected (Not Detectd) Disposition Clinical Impression: Palpitations Disposition: HOME SELF-CARE Condition: Poor Instructions (If sedation given, give patient instructions): Heart Palpitations (ED) Is patient prescribed a controlled substance at d/c from ED?: No Referrals: Dorcas Rey MD [STAFF PHYSICIAN] - 1-2 days Time of Disposition: 12:24
--- NOTE | 2021-10-05 09:52 | XR ---
EXAMINATION TYPE: XR chest 2V DATE OF EXAM: 10/05/2021 COMPARISON: 05/01/2018 TECHNIQUE: PA and lateral views submitted. HISTORY: Dysrhythmia FINDINGS: The lungs are clear and there is no pneumothorax, pleural effusion, or focal pneumonia. Heart size normal. No overt failure. IMPRESSION: 1. No acute process.
[2021-10-05 09:57] LABS: Basophils % (A) 0 %; Eosinophils # (A) 0.1 k/uL (0-0.7); Eosinophils % (A) 1 %; HCT 40.7 % (34.0-46.0); HGB 13.7 gm/dL (11.4-16.0); Lymphocytes # (A) 1.8 k/uL (1.0-4.8); Lymphocytes % (A) 18 %; MCH 28.4 pg (25.0-35.0); MCHC 33.8 g/dL (31.0-37.0); MCV 84.1 fL (80.0-100.0); Mean Platelet Volume 7.7; Monocytes # (A) 0.5 k/uL (0-1.0); Monocytes % (A) 5 %; Neutrophils # (A) 7.3 k/uL (1.3-7.7); Neutrophils % (A) 75 %; Platelet Count 319 k/uL (150-450); RBC 4.84 m/uL (3.80-5.40); WBC 9.8 k/uL (3.8-10.6)
[2021-10-05 10:07] LABS: ALT 23 U/L (4-34); AST 27 U/L (14-36); African American GFR (CKD) >90 (>60 ml/min/1.73 sqM); Albumin 4.5 g/dL (3.5-5.0); Alkaline Phosphatase 68 U/L (38-126); Anion Gap 8 mmol/L; Blood Urea Nitrogen 10 mg/dL (7-17); Calcium 9.6 mg/dL (8.4-10.2); Carbon Dioxide 20 mmol/L (22-30); Chloride 108 mmol/L (98-107); Glucose 120 mg/dL (74-99); Magnesium 1.9 mg/dL (1.6-2.3); Non-African American GFR(CKD) >90 (>60 ml/min/1.73 sqM); Sodium 136 mmol/L (137-145); Total Bilirubin 0.7 mg/dL (0.2-1.3); Total Protein 7.6 g/dL (6.3-8.2)
[2021-10-05 10:11] LABS: Amorphous Sediment,Urine Occasional /hpf; Appearance,Urine Cloudy (Clear); Bacteria,Urine Few /hpf; Bilirubin,Urine Negative (Negative); Blood,Urine Negative (Negative); Color,Urine Light Yellow; Glucose,Urine (UA) Negative (Negative); Ketones,Urine Negative (Negative); Leukocyte Esterase,Urine Large (Negative); Nitrite,Urine Negative (Negative); PH, Urine 5.5 (5.0-8.0); Partial Thromboplastin Time 24.7 sec (22.0-30.0); Protein,Urine Negative (Negative); Prothrombin Time 10.7 sec (9.0-12.0); Specific Gravity,Urine 1.002 (1.001-1.035); Squamous Epithelial Cell,Urine 5 /hpf (0-4); Urobilinogen,Urine <2.0 mg/dL (<2.0); WBC,Urine 10 /hpf (0-5)
[2021-10-05 10:24] LABS: Amphetamine Screen,Urine Not Detected (NotDetected); Barbiturate Screen,Urine Not Detected (NotDetected); Benzodiazepines Screen,Urine Not Detected (NotDetected); Cocaine Screen,Urine Not Detected (NotDetected); Methadone Screen, Urine Not Detected (NotDetected); Opiate Screen,Urine Not Detected (NotDetected); Oxycodone Screen, Urine Not Detected (NotDetected); Phencyclidine Screen,Urine Not Detected (NotDetected); Tricyclic Antidepressant,Urine Not Detected (NotDetected); Urn Cannabinoid Scrn Not Detected (NotDetected)
[2021-10-05 11:41] VITALS: RESP 18
[2021-10-05 12:39] VITALS: BP 118/74; PULSE 90; TEMP 97.8
== END 2021-10-05 12:37 | disposition home or self-care (01) ==
LOC: EC 08:40
DX: R00.2 Palpitations (principal)
CPT/HCPCS: 36415; 71046; 80053; 80306; 81001; 83735; 84443; 84484; 85025; 85610; 85730; 87635; 93005; 99285

== ENCOUNTER 2021-10-14 09:09 | Emergency (ER) | payer OTHER ==
--- NOTE | 2021-10-14 09:53 | ED ---
General Adult HPI - General Chief complaint: Chest Pain Stated complaint: Chest Pain/High HR Time Seen by Provider: 10/14/21 09:18 Source: patient Mode of arrival: ambulatory Limitations: no limitations - History of Present Illness Initial comments: Dictation was produced using [employer] dictation software. please excuse any grammatical, word or spelling errors. Chief Complaint: 41-year-old femalepast medical history presents emergency department for chest pain palpitations History of Present Illness: 41-year-old female she is here for her third visit to be evaluated for palpitations. This morning states that her symptoms are dif ferent is not she has chest pain. States it is a slight pressure substernal area. It lasted briefly and resolved on its own. Patient's asymptomatic at this time. She had a set palpitations that occur for several minutes proximally one every 3-4 days. She seen in our emergency department 9 days ago and was given referral to cardiology. She did follow up with cardiology and has a Holter monitor and she is wearing. She is also now on metoprolol 50 mg daily prescribed by cardiology. Patient is here because she wants to make sure that nothing life-threatening securing. Patient's short of breath at the moment. She has no symptoms whatsoeverat the bedside. During these palpation episodes she states that her heart rate goes anywhere between 130-150 bpm The ROS documented in this emergency department record has been reviewed and confirmed by me. Those systems with pertinent positive or negative responses have been documented in the HPI. All other systems are other negative and/or noncontributory. PHYSICAL EXAM: General Impression: Alert and oriented x3, not in acute distress HEENT: Normocephalic atraumatic, extra-ocular movements intact, pupils equal and reactive to light bilaterally, mucous membranes moist. Cardiovascular: Heart regular rate and rhythm Chest: Able to complete full sentences, no retractions, no tachypnea Abdomen: abdomen soft, non-tender, non-distended, no organomegaly Musculoskeletal: Pulses present and equal in all extremities, no peripheral edema Motor: no focal deficits noted Neurological: CN II-XII grossly intact, no focal motor or sensory deficits noted Skin: Intact with no visualized rashes Psych: Normal affect and mood ED course: 41-year-old feel presents emergency department for chest pain or palpitations. Her pain is atypical. She is asymptomatic at bedside. Chest pain is atypical with typical features. Vital signs upon arrival are within acceptable limits. EKG does not show any signs of ischemia or infarction. No tachydysrhythmia. Laboratory evaluation obtained. CBC, metabolic panel and electrolytes [place] enzymes are all negative. TSH is normal. Patient observed in emergency department for approximately 2 hours and 45 minutes. She is reevaluating 11:50 PM. She states she did have some short episode of palpitations while in the emergency department. traffic and transport planner was reviewed. There were some acceler ations from heart rate of 70-90 bpm however was still sinus rhythm. Disposition options were discussed. She is continued to be asymptomatic. She does have outpatient follow-up. She does understand that she can return to emergency department if she has any issues. Patient agreeable to discharge. EKG interpretation: Ventricular rate 72, sinus rhythm,. Interval 136, QRS 93, QTc 416. No DC prolongation, no QTC prolongation, no ST or T-wave changes noted. Overall, this EKG is unremarkable - Related Data Home Medications Medication Instructions Recorded Confirmed Multivitamins, Thera [Multivitamin 1 tab PO W/SUPPER 01/24/18 10/14/21 (formulary)] Cetirizine HCl [Zyrtec] 10 mg PO DAILY 04/14/19 10/14/21 Ergocalciferol [Vitamin D2 (1250 1,250 mcg PO NGUYEN 10/05/21 10/14/21 Mcg = 45145 Iu)] Levothyroxine Sodium [Synthroid] 100 mcg PO DAILY 10/05/21 10/14/21 Metoprolol Succinate [Toprol XL] 25 mg PO DAILY PRN 10/14/21 10/14/21 Nitrofurantoin Monohyd/M-Cryst 100 mg PO BID 10/14/21 10/14/21 [Macrobid] Phenazopyridine [Pyridium] 200 mg PO TID PRN 10/14/21 10/14/21 Allergies Allergy/AdvReac Type Severity Reaction Status Date / Time codeine Allergy Rash/Hives Verified 10/14/21 10:14 Penicillins Allergy Rash/Hives Verified 10/14/21 10:14 Review of Systems ROS Statement: Those systems with pertinent positive or pertinent negative responses have been documented in the HPI. ROS Other: All systems not noted in ROS Statement are negative. Past Medical History Past Medical History: Thyroid Disorder Additional Past Medical History / Comment(s): tachycardia History of Any Multi-Drug Resistant Organisms: None Reported Past Surgical History: Bariatric Surgery, Cholecystectomy, Tonsillectomy Additional Past Surgical History / Comment(s): lap band surgery 2009 Past Anesthesia/Blood Transfusion Reactions: No Reported Reaction Past Psychological History: No Psychological Hx Reported Smoking Status: Never smoker Past Alcohol Use History: None Reported Past Drug Use History: None Reported General Exam Limitations: no limitations Course Vital Signs 10/14/21 10/14/21 09:15 10:29 Temperature 98.5 F Pulse Rate 84 81 Respiratory 20 16 Rate Blood Pressure 128/86 114/63 O2 Sat by Pulse 100 98 Oximetry Medical Decision Making - Lab Data Result diagrams: 10/14/21 09:51 10/14/21 09:51 Lab Results 10/14/21 10/14/21 10/14/21 Range/Units 09:51 09:51 09:51 WBC 6.9 (3.8-10.6) k/uL RBC 4.91 (3.80-5.40) m/uL Hgb 13.9 (11.4-16.0) gm/dL Hct 41.4 (34.0-46.0) % MCV 84.2 (80.0-100.0) fL MCH 28.2 (25.0-35.0) pg MCHC 33.5 (31.0-37.0) g/dL RDW 13.4 (11.5-15.5) % Plt Count 316 (150-450) k/uL MPV 7.3 Neutrophils % 56 % Lymphocytes % 34 % Monocytes % 5 % Eosinophils % 2 % Basophils % 1 % Neutrophils # 3.9 (1.3-7.7) k/uL Lymphocytes # 2.4 (1.0-4.8) k/uL Monocytes # 0.4 (0-1.0) k/uL Eosinophils # 0.1 (0-0.7) k/uL Basophils # 0.1 (0-0.2) k/uL Sodium 140 (137-145) mmol/L Potassium 3.8 (3.5-5.1) mmol/L Chloride 109 H (98-107) mmol/L Carbon Dioxide 22 (22-30) mmol/L Anion Gap 9 mmol/L BUN 11 (7-17) mg/dL Creatinine 0.77 (0.52-1.04) mg/dL Est GFR (CKD-EPI)AfAm >90 (>60 ml/min/1.73 sqM) Est GFR (CKD-EPI)NonAf >90 (>60 ml/min/1.73 sqM) Glucose 104 H (74-99) mg/dL Calcium 9.4 (8.4-10.2) mg/dL Ionized Calcium Shanelle 5.0 (4.5-5.3) mg/dL Magnesium 2.0 (1.6-2.3) mg/dL Troponin I <0.012 (0.000-0.034) ng/mL TSH 2.730 (0.465-4.680) mIU/L Disposition Clinical Impression: Palpitations Disposition: HOME SELF-CARE Condition: Fair Instructions (If sedation given, give patient instructions): Heart Palpitations (ED) Is patient prescribed a controlled substance at d/c from ED?: No Referrals: Ted Vides MD [Primary Care Provider] - 1-2 days Glen Harrington MD [STAFF PHYSICIAN] - 1-2 days
[2021-10-14 10:13] LABS: Basophils # (A) 0.1 k/uL (0-0.2); Basophils % (A) 1 %; Eosinophils # (A) 0.1 k/uL (0-0.7); Eosinophils % (A) 2 %; HCT 41.4 % (34.0-46.0); HGB 13.9 gm/dL (11.4-16.0); Lymphocytes # (A) 2.4 k/uL (1.0-4.8); Lymphocytes % (A) 34 %; MCH 28.2 pg (25.0-35.0); MCHC 33.5 g/dL (31.0-37.0); MCV 84.2 fL (80.0-100.0); Mean Platelet Volume 7.3; Monocytes # (A) 0.4 k/uL (0-1.0); Monocytes % (A) 5 %; Neutrophils # (A) 3.9 k/uL (1.3-7.7); Neutrophils % (A) 56 %; Platelet Count 316 k/uL (150-450); RBC 4.91 m/uL (3.80-5.40); RDW 13.4 % (11.5-15.5); WBC 6.9 k/uL (3.8-10.6)
[2021-10-14 10:19] LABS: African American GFR (CKD) >90 (>60 ml/min/1.73 sqM); Anion Gap 9 mmol/L; Blood Urea Nitrogen 11 mg/dL (7-17); Calcium 9.4 mg/dL (8.4-10.2); Carbon Dioxide 22 mmol/L (22-30); Chloride 109 mmol/L (98-107); Glucose 104 mg/dL (74-99); Non-African American GFR(CKD) >90 (>60 ml/min/1.73 sqM); Potassium 3.8 mmol/L (3.5-5.1); Sodium 140 mmol/L (137-145)
[2021-10-14 10:29] VITALS: RESP 16
[2021-10-14 12:14] VITALS: BP 126/78; PULSE 78; TEMP 98
== END 2021-10-14 12:13 | disposition home or self-care (01) ==
LOC: EC 09:09
DX: R00.2 Palpitations (principal)
CPT/HCPCS: 36415; 80048; 82330; 83735; 84443; 84484; 85025; 93005; 99285

== ENCOUNTER → 2021-10-16 | Outpatient (CLI) | payer OTHER ==
[2021-10-16 14:50] VITALS: BP 114/85; PULSE 95; TEMP 98.1; BMI 36.8
--- NOTE | 2021-10-23 15:21 | P.HPBAR ---
Bariatric H&P - History & Physicial H&P Date: 10/16/21 History & Physicial: Visit/CC: lap band follow up Patient initial contact: Initial weight: 83.971 kg Initial weight in pounds: 185.12 Height: 5 ft 2.75 in Initial BMI: 33.0 Last weight: Current weight: 93.44 kg Current weight in pounds: 206.00 Current BMI: 36.8 [place] body weight (based on NIH guidelines): 51.596 kg Excess body weight loss: The patient is a 41 year-old F who presents for Bariatric Assessment. Patient presents today for bariatric follow-up. She's had complaints of GERD. Past Medical History Past Medical History: Thyroid Disorder Additional Past Medical History / Comment(s): tachycardia History of Any Multi-Drug Resistant Organisms: None Reported Past Surgical History: Bariatric Surgery, Cholecystectomy, Tonsillectomy Additional Past Surgical History / Comment(s): lap band surgery 2009 Past Anesthesia/Blood Transfusion Reactions: No Reported Reaction Past Psychological History: No Psychological Hx Reported Smoking Status: Never smoker Past Alcohol Use History: None Reported Past Drug Use History: None Reported Surgical - Exam Vital Signs Temp Pulse BP 98.1 F 95 114/85 10/16/21 14:45 10/16/21 14:45 10/16/21 14:45 - General well developed, well nourished, no distress - Eyes PERRL - ENT normal pinna - Neck no masses - Respiratory normal expansion - Cardiovascular Rhythm: regular - Abdomen Abdomen: soft, non tender Bariatric Assessment & Plan Plan: Attempts were made to adjust the patient's LAP-BAND. Her port is rotated. It is unable to be accessed. The patient is scheduled for revision of LAP-BAND port. She'll also be scheduled for EGD to her GERD symptoms. Bariatric Checklist Checklist: Plan: Checklist: EGD: 1. Hiatal hernia: 2. H. Pylori: HgbA1c: Vitamin D: Smoking: Never smoker Primary care physician referral: Dr Kristy Burgess Psychiatry clearance: Cardiology clearance: Sleep study: Diet journal: VTE risk score: VTE risk level: Rehab needs at discharge:
== END ==
LOC: BARWHC3 13:17
PROVIDERS: ATTEND Surgery
DX: Z09 Encounter for follow-up examination after completed treatment for conditions other than malignant neoplasm (principal); K21.9 Gastro-esophageal reflux disease without esophagitis; Z98.84 Bariatric surgery status; Z88.0 Allergy status to penicillin; Z88.5 Allergy status to narcotic agent
CPT/HCPCS: 99211

== ENCOUNTER 2021-10-17 08:59 | Observation (INO) | payer OTHER ==
[2021-10-17] MEDS ORDERED: SODIUM CHLORIDE 0.9% 1,000 ML IV STA (10:16)
[2021-10-17] MEDS ORDERED: ONDANSETRON 4 MG/2 ML VIAL IVP STA ×2 (10:18→21:04)
--- NOTE | 2021-10-17 10:21 | ED ---
General Adult HPI - General Chief complaint: Arrhythmia/Palpitations Stated complaint: elevated heart rate Source: patient Mode of arrival: ambulatory Limitations: no limitations - History of Present Illness Initial comments: 41-year-old with a past medical history of lap band surgery, cholecystectomy, tonsillectomy, thyroid disorder presents to the emergency room for a chief c omplaint of palpitations. Patient states that she has been having palpitations for about 3 weeks now. Patient states that these palpitations come and go testing anywhere from 30 minutes to 2 hours. States they happen a couple times per day. Patient has been seen in the emergency department twice prior in the past couple weeks for this and referred to cardiology. Patient states she just had a Holter monitor on for about a week and since it in yesterday, does not have the results. She saw cardiology as past and they started her on 25 mg metoprolol daily. She states she does have an echo and a stress test coming up in about a month. However today and last night she was nauseous and wasn't keeping down fluids. She denies any abdominal pain. She does admit to a sharp chest pain that happens when she gets the palpitations but otherwise no chest pain. She does not recall anything that specifically triggers these episodes. The patient has felt lightheaded on and off as well.Patient has no other complaints at this time including shortness of breath, abdominal pain, nausea or vomiting, headache, or visual changes. - Related Data Home Medications Medication Instructions Recorded Confirmed Multivitamins, Thera [Multivitamin 1 tab PO DAILY 01/24/18 10/17/21 (formulary)] Cetirizine HCl [Zyrtec] 10 mg PO DAILY 04/14/19 10/17/21 Ergocalciferol [Vitamin D2 (1250 1,250 mcg PO MO 10/05/21 10/17/21 Mcg = 15728 Iu)] Levothyroxine Sodium [Synthroid] 100 mcg PO DAILY 10/05/21 10/17/21 Metoprolol Succinate [Toprol XL] 25 mg PO HS 10/14/21 10/17/21 Allergies Allergy/AdvReac Type Severity Reaction Status Date / Time codeine Allergy Unknown Verified 10/17/21 11:50 Childhood Penicillins Allergy Unknown Verified 10/17/21 11:50 Childhood Review of Systems ROS Statement: Those systems with pertinent positive or pertinent negative responses have been documented in the HPI. ROS Other: All systems not noted in ROS Statement are negative. Past Medical History Past Medical History: Thyroid Disorder Additional Past Medical History / Comment(s): tachycardia History of Any Multi-Drug Resistant Organisms: None Reported Past Surgical History: Bariatric Surgery, Cholecystectomy, Tonsillectomy Additional Past Surgical History / Comment(s): lap band surgery 2009 Past Anesthesia/Blood Transfusion Reactions: No Reported Reaction Past Psychological History: No Psychological Hx Reported Smoking Status: Never smoker Past Alcohol Use History: None Reported Past Drug Use History: None Reported General Exam Limitations: no limitations General appearance: alert, in no apparent distress Head exam: Present: atraumatic Eye exam: Present: normal appearance, PERRL, EOMI. Absent: scleral icterus, conjunctival injection ENT exam: Present: normal exam, mucous membranes moist Neck exam: Present: normal inspection, full ROM. Absent: tenderness Respiratory exam: Present: normal lung sounds bilaterally. Absent: respiratory distress, wheezes Cardiovascular Exam: Present: regular rate, normal rhythm, normal heart sounds GI/Abdominal exam: Present: soft, normal bowel sounds. Absent: distended, tenderness Neurological exam: Present: alert Course Vital Signs 10/17/21 10/17/21 09:31 13:20 Temperature 98.5 F Pulse Rate 84 80 Respiratory 18 18 Rate Blood Pressure 151/82 124/69 O2 Sat by Pulse 100 98 Oximetry EKG Findings - EKG Comments: EKG Findings:: Normal sinus rhythm, ventricular rate 76, [place] interval 136, QTC 408 Medical Decision Making - Medical Decision Making Vitals are stable. Patient is well-appearing. CBC CMP unremarkable. D-dimer and troponin are negative. Urinalysis negative. Chest x-ray shows no acute process. Patient did have a previous TSH drawn which was normal 2. This is discussed with Dr. Robbins. As this is patient's third visit to the emergency room recommends admission for cardiology consultation. Case discussed with Dr. iesha rasmussen who does accept admission. I did notify the patient that it is possible she will not get a stress test or an echo tomorrow if cardiology does not feel it is necessary on an emergent basis. - Lab Data Result diagrams: 10/17/21 09:53 10/17/21 09:53 Lab Results 10/17/21 10/17/21 10/17/21 Range/Units 09:53 09:53 09:53 WBC 7.7 (3.8-10.6) k/uL RBC 5.21 (3.80-5.40) m/uL Hgb 14.9 (11.4-16.0) gm/dL Hct 44.3 (34.0-46.0) % MCV 85.0 (80.0-100.0) fL MCH 28.6 (25.0-35.0) pg MCHC 33.6 (31.0-37.0) g/dL RDW 13.1 (11.5-15.5) % Plt Count 305 (150-450) k/uL MPV 7.5 Neutrophils % 65 % Lymphocytes % 25 % Monocytes % 6 % Eosinophils % 2 % Basophils % 1 % Neutrophils # 5.0 (1.3-7.7) k/uL Lymphocytes # 1.9 (1.0-4.8) k/uL Monocytes # 0.5 (0-1.0) k/uL Eosinophils # 0.1 (0-0.7) k/uL Basophils # 0.1 (0-0.2) k/uL PT 11.0 (9.0-12.0) sec INR 1.0 (<1.2) APTT 24.7 (22.0-30.0) sec D-Dimer 0.34 (<0.60) mg/L FEU Sodium 138 (137-145) mmol/L Potassium 3.9 (3.5-5.1) mmol/L Chloride 107 (98-107) mmol/L Carbon Dioxide 21 L (22-30) mmol/L Anion Gap 10 mmol/L BUN 9 (7-17) mg/dL Creatinine 0.76 (0.52-1.04) mg/dL Est GFR (CKD-EPI)AfAm >90 (>60 ml/min/1.73 sqM) Est GFR (CKD-EPI)NonAf >90 (>60 ml/min/1.73 sqM) Glucose 104 H (74-99) mg/dL Calcium 9.4 (8.4-10.2) mg/dL Magnesium 2.1 (1.6-2.3) mg/dL Total Bilirubin 0.8 (0.2-1.3) mg/dL AST 33 (14-36) U/L ALT 36 H (4-34) U/L Alkaline Phosphatase 67 (38-126) U/L Troponin I (0.000-0.034) ng/mL Total Protein 8.4 H (6.3-8.2) g/dL Albumin 4.9 (3.5-5.0) g/dL Urine Color Urine Appearance (Clear) Urine pH (5.0-8.0) Ur Specific [place] (1.001-1.035) Urine Protein (Negative) Urine Glucose (UA) (Negative) Urine Ketones (Negative) Urine Blood (Negative) Urine Nitrite (Negative) Urine Bilirubin (Negative) Urine Urobilinogen (<2.0) mg/dL Ur Leukocyte Esterase (Negative) Urine RBC (0-5) /hpf Urine WBC (0-5) /hpf Ur Squamous Epith Cells (0-4) /hpf Urine Bacteria (None) /hpf Urine HCG, Qual (Not Detectd) 10/17/21 10/17/21 10/17/21 Range/Units 09:53 10:37 10:37 WBC (3.8-10.6) k/uL RBC (3.80-5.40) m/uL Hgb (11.4-16.0) gm/dL Hct (34.0-46.0) % MCV (80.0-100.0) fL MCH (25.0-35.0) pg MCHC (31.0-37.0) g/dL RDW (11.5-15.5) % Plt Count (150-450) k/uL MPV Neutrophils % % Lymphocytes % % Monocytes % % Eosinophils % % Basophils % % Neutrophils # (1.3-7.7) k/uL Lymphocytes # (1.0-4.8) k/uL Monocytes # (0-1.0) k/uL Eosinophils # (0-0.7) k/uL Basophils # (0-0.2) k/uL PT (9.0-12.0) sec INR (<1.2) APTT (22.0-30.0) sec D-Dimer (<0.60) mg/L FEU Sodium (137-145) mmol/L Potassium (3.5-5.1) mmol/L Chloride (98-107) mmol/L Carbon Dioxide (22-30) mmol/L Anion Gap mmol/L BUN (7-17) mg/dL Creatinine (0.52-1.04) mg/dL Est GFR (CKD-EPI)AfAm (>60 ml/min/1.73 sqM) Est GFR (CKD-EPI)NonAf (>60 ml/min/1.73 sqM) Glucose (74-99) mg/dL Calcium (8.4-10.2) mg/dL Magnesium (1.6-2.3) mg/dL Total Bilirubin (0.2-1.3) mg/dL AST (14-36) U/L ALT (4-34) U/L Alkaline Phosphatase (38-126) U/L Troponin I <0.012 (0.000-0.034) ng/mL Total Protein (6.3-8.2) g/dL Albumin (3.5-5.0) g/dL Urine Color Colorless Urine Appearance Cloudy H (Clear) Urine pH 6.0 (5.0-8.0) Ur Specific [place] 1.002 (1.001-1.035) Urine Protein Negative (Negative) Urine Glucose (UA) Negative (Negative) Urine Ketones Trace H (Negative) Urine Blood Negative (Negative) Urine Nitrite Negative (Negative) Urine Bilirubin Negative (Negative) Urine Urobilinogen <2.0 (<2.0) mg/dL Ur Leukocyte Esterase Negative (Negative) Urine RBC 4 (0-5) /hpf Urine WBC 4 (0-5) /hpf Ur Squamous Epith Cells 3 (0-4) /hpf Urine Bacteria Occasional H (None) /hpf Urine HCG, Qual Not Detected (Not Detectd) Disposition Clinical Impression: Palpitations, Chest pain Disposition: ADMITTED IP TO THIS HOSP Is patient prescribed a controlled substance at d/c from ED?: No Referrals: Ted Vides MD [Primary Care Provider] - 1-2 days Time of Disposition: 14:27
[2021-10-17 10:45] LABS: Basophils # (A) 0.1 k/uL (0-0.2); Basophils % (A) 1 %; Eosinophils # (A) 0.1 k/uL (0-0.7); Eosinophils % (A) 2 %; HCT 44.3 % (34.0-46.0); HGB 14.9 gm/dL (11.4-16.0); Lymphocytes # (A) 1.9 k/uL (1.0-4.8); Lymphocytes % (A) 25 %; MCH 28.6 pg (25.0-35.0); MCHC 33.6 g/dL (31.0-37.0); Mean Platelet Volume 7.5; Monocytes # (A) 0.5 k/uL (0-1.0); Monocytes % (A) 6 %; Neutrophils % (A) 65 %; Platelet Count 305 k/uL (150-450); RBC 5.21 m/uL (3.80-5.40); RDW 13.1 % (11.5-15.5); WBC 7.7 k/uL (3.8-10.6)
[2021-10-17 10:57] LABS: Appearance,Urine Cloudy (Clear); Bacteria,Urine Occasional /hpf; Bilirubin,Urine Negative (Negative); Blood,Urine Negative (Negative); Color,Urine Colorless; Glucose,Urine (UA) Negative (Negative); Ketones,Urine Trace (Negative); Leukocyte Esterase,Urine Negative (Negative); Nitrite,Urine Negative (Negative); Protein,Urine Negative (Negative); RBC,Urine 4 /hpf (0-5); Specific Gravity,Urine 1.002 (1.001-1.035); Squamous Epithelial Cell,Urine 3 /hpf (0-4); Urobilinogen,Urine <2.0 mg/dL (<2.0); WBC,Urine 4 /hpf (0-5)
[2021-10-17 10:59] LABS: ALT 36 U/L (4-34); AST 33 U/L (14-36); African American GFR (CKD) >90 (>60 ml/min/1.73 sqM); Albumin 4.9 g/dL (3.5-5.0); Alkaline Phosphatase 67 U/L (38-126); Anion Gap 10 mmol/L; Blood Urea Nitrogen 9 mg/dL (7-17); Calcium 9.4 mg/dL (8.4-10.2); Carbon Dioxide 21 mmol/L (22-30); Chloride 107 mmol/L (98-107); Glucose 104 mg/dL (74-99); Magnesium 2.1 mg/dL (1.6-2.3); Non-African American GFR(CKD) >90 (>60 ml/min/1.73 sqM); Potassium 3.9 mmol/L (3.5-5.1); Sodium 138 mmol/L (137-145); Total Bilirubin 0.8 mg/dL (0.2-1.3); Total Protein 8.4 g/dL (6.3-8.2)
[2021-10-17 11:04] LABS: Partial Thromboplastin Time 24.7 sec (22.0-30.0)
--- NOTE | 2021-10-17 11:16 | XR ---
EXAMINATION TYPE: XR chest 2V DATE OF EXAM: 10/17/2021 COMPARISON: Chest x-ray 10/05/2021 HISTORY: Palpitations TECHNIQUE: Frontal and lateral views of the chest are obtained. FINDINGS: There is no focal air space opacity, pleural effusion, or pneumothorax seen. The cardiac silhouette size is within normal limits. There is elevation of right hemidiaphragm. There are overlyi ng leads. Surgical clips are present in the upper abdomen. The osseous structures are intact. IMPRESSION: No acute cardiopulmonary process.
[2021-10-17] MEDS ORDERED: ASPIRIN 81 MG PO STA (13:26)
--- NOTE | 2021-10-17 15:52 | P.HPIM ---
<Brando Torrez - Last Filed: 10/17/21 15:47> History of Present Illness H&P Date: 10/17/21 History of Presenting Illness: Patient is a very pleasant 41-year-old female with a past medical history of hyp othyroidism along with surgical history of gastric lap band surgery, cholecystectomy, and tonsillectomy. She presented to the emergency department with a chief complaint of palpitations. Patient reports these palpitations approximately 3 weeks ago and have intermittently waxed and waned occurring 2-3 times per day. Patient has been evaluated in the emergency department on 2 previous occasions and has been referred to cardiology where she had a Holter monitor 1 week and is currently awaiting on results. Patient states she was recently started on metoprolol 25 mg daily and has a scheduled echocardiogram and stress test next month. Patient states these palpitations seem to occur more frequently and lasting longer and have been accompanied by nausea associated return to the emergency department for evaluation. In the emergency department, patient was seen and fully evaluated. An EKG was completed showing normal sinus rhythm at 76 bpm with no noted T-wave or ST abnormalities. Chest x-ray was completed negative for acute cardiopulmonary process. Labs completed with CBC, coags, BMP, liver profile, and magnesium all unremarkable. D-dimer was negative at 0.34 and troponin was also negative at less than 0.012. Urinalysis negative for blood or infection. TSH drawn 10/14/21 normal findings at 2.730. Patient was admitted to observation unit under our services with consultation to cardiology. Upon physical examination patient reports currently palpitations have resolved along with nausea. She reports they have been persistently coming on 2-3 times daily for the past 3 weeks and felt as though they were worsening because last night she was unable to eat or drink anything because of the severe nausea unaccompanied these palpitations. Patient reports just prior to having palpitations she would get a warm feeling coming over her and felt almost a foggy sensation followed by nausea, palpitations, and numbness/tingling in bilateral hands and fingers. She states these symptoms varied in time and sometimes only lasted a few moments other way up to 2 hours at a time. Currently patient denies having any headache, lightheadedness, dizziness, changes in her vision or hearing, chest pain, shortness of breath, dyspnea with exertion, abdominal pain, vomiting, or experiencing any lower extremity edema. Review of systems: Pertinent positives and negatives as discussed in HPI, a complete review of systems was performed and all other systems are negative. Physical exam: Vital signs reviewed and stable. General: Nontoxic, no distress and appears stated age. Derm: Skin warm and dry, normal coloration for ethnicity. Head: Atraumatic, normocephalic and symmetric. Eyes: EOMs intact, no lid lag, and anicteric sclera Mouth: no lip lesions, mucus membranes moist Cardiovascular: regular rate and rhythm with normal S1S2, no murmur, positive posterior tibial pulses bilaterally, and cap refill < 2 seconds. Lungs: Respirations even, regular, and unlabored on room air. Lungs CTA bilaterally, no rhonchi, no rales, no wheezing, and no accessory muscle usage. Abdominal: soft, nontender to palpation, no guarding, no appreciable organomegaly Ext: ROM intact. No gross muscle atrophy, no edema, no contractures Neuro: Speech clear, face symmetrical and CN II-XII grossly intact with no noted focal neuro deficits Psych: Alert and oriented to person, place, time, and situation. Appropriate and pleasant affect. Assessment and Plan of Care: Palpitations -Telemetry monitoring -Cardiology consult -Continuation of metoprolol 25 mg nightly. Hypothyroidism -Continue daily medication regimen with levothyroxine 100 g each morning. The patient is admitted with an anticipated less than 2 midnight stay for evaluation of palpitations. CODE STATUS: Full code DVT prophylaxis: SCDs Discussed with: Patient and RN Anticipated discharge date: Tomorrow morning Anticipated discharge place: Home A total of 42 minutes was spent on the care of this complex patient more than 50% of the time was spent in counseling and care coordination. Past Medical History Past Medical History: Thyroid Disorder Additional Past Medical History / Comment(s): tachycardia History of Any Multi-Drug Resistant Organisms: None Reported Past Surgical History: Bariatric Surgery, Cholecystectomy, Tonsillectomy Additional Past Surgical History / Comment(s): lap band surgery 2009 Past Anesthesia/Blood Transfusion Reactions: No Reported Reaction Past Psychological History: No Psychological Hx Reported Smoking Status: Never smoker Past Alcohol Use History: None Reported Past Drug Use History: None Reported Medications and Allergies Home Medications Medication Instructions Recorded Confirmed Type Multivitamins, Thera [Multivitamin 1 tab PO DAILY 01/24/18 10/17/21 History (formulary)] Cetirizine HCl [Zyrtec] 10 mg PO DAILY 04/14/19 10/17/21 History Ergocalciferol [Vitamin D2 (1250 1,250 mcg PO MO 10/05/21 10/17/21 History Mcg = 08289 Iu)] Levothyroxine Sodium [Synthroid] 100 mcg PO DAILY 10/05/21 10/17/21 History Metoprolol Succinate [Toprol XL] 25 mg PO HS 10/14/21 10/17/21 History Allergies Allergy/AdvReac Type Severity Reaction Status Date / Time codeine Allergy Unknown Verified 10/17/21 11:50 Childhood Penicillins Allergy Unknown Verified 10/17/21 11:50 Childhood Physical Exam Vitals: Vital Signs Temp Pulse Resp BP Pulse Ox 10/17/21 13:20 80 18 124/69 98 10/17/21 09:31 98.5 F 84 18 151/82 100 Intake and Output 10/17/21 10/17/21 10/17/21 06:59 14:59 22:59 Other: Weight 97.522 kg Results CBC & Chem 7: 10/17/21 09:53 10/17/21 09:53 Labs: Abnormal Lab Results - Last 24 Hours (Table) 10/17/21 10/17/21 Range/Units 09:53 10:37 Carbon Dioxide 21 L (22-30) mmol/L Glucose 104 H (74-99) mg/dL ALT 36 H (4-34) U/L Total Protein 8.4 H (6.3-8.2) g/dL Urine Appearance Cloudy H (Clear) Urine Ketones Trace H (Negative) Urine Bacteria Occasional H (None) /hpf <Ondina Olivas - Last Filed: 10/17/21 19:08> History of Present Illness Brando Torrez NP rendered care for this patient independently, reviewed the findings and plan as documented in the note above. I did not physically speak with or examine the patient on this date. Physical Exam Osteopathic Statement: *. No significant issues noted on an osteopathic structural exam other than those noted in the History and Physical/Consult. Vitals: Vital Signs Temp Pulse Resp BP Pulse Ox 10/17/21 13:20 80 18 124/69 98 10/17/21 09:31 98.5 F 84 18 151/82 100 Intake and Output 10/17/21 10/17/21 10/17/21 06:59 14:59 22:59 Other: Weight 97.522 kg Results CBC & Chem 7: 10/17/21 09:53 10/17/21 09:53 Labs: Abnormal Lab Results - Last 24 Hours (Table) 10/17/21 10/17/21 Range/Units 09:53 10:37 Carbon Dioxide 21 L (22-30) mmol/L Glucose 104 H (74-99) mg/dL ALT 36 H (4-34) U/L Total Protein 8.4 H (6.3-8.2) g/dL Urine Appearance Cloudy H (Clear) Urine Ketones Trace H (Negative) Urine Bacteria Occasional H (None) /hpf
[2021-10-17] MEDS ORDERED: METOPROLOL SUCCINATE (ER) 25 MG TAB.ER.24H PO SCH ×2 (18:30→21:00)
[2021-10-17] MEDS ORDERED: ALPRAZolam 1 MG TAB PO STA (21:04)
[2021-10-17 23:07] VITALS: RESP 16; TEMP 98.1
[2021-10-18] MEDS ORDERED: LEVOTHYROXINE 100 MCG TAB PO SCH (06:30)
[2021-10-18 07:35] VITALS: BP 123/69; PULSE 73
[2021-10-18] MEDS: ASPIRIN 325 MG TAB PO SCH ×2 (07:46→07:50)
[2021-10-18] MEDS ORDERED: ASPIRIN 81 MG PO SCH (09:00)
[2021-10-18 09:42] LABS: Chol/HDL Ratio 2.71 Ratio; LDL Cholesterol,Calculated 59.5 mg/dL (0.0-131.0); VLDL Calculation 16.32 mg/dL (5.00-40.00)
--- NOTE | 2021-10-18 10:35 | P.CRDCN ---
History of Present Illness History of present illness: HISTORY OF PRESENTING ILLNESS This is a pleasant 41-year-old female past medical history significant for hypothyroidism, asthma, palpitations. She follows in the office with Dr. Harrington. She recently saw Dr. Harrington in the office in the office on 10/12/2021. We have been asked to see in consultation for chest pain and palpitations. Patient presents to the emergency department with complaints of palpitations for 3 weeks. She has been having 3 visits to the emergency department due to palpitat ions initial workup has been negative. She states she intermittently gets feelings of palpitations, followed by midsternal chest discomfort, feels as if she cannot take a deep breath. Her neck/throat feels tight, shortness of breath and then has body chills. She feels lightheaded as if she may pass out. She states this comes on randomly, not aggravated by activity. Relieved usually by rest, sometimes takes 1-2 hours to resolve. She has them a few times per day, intermittent, come and go. She checks her pulse at home with a monitor and she states it will be anywhere from 90-115. PCP ordered a 7 day event monitor which was completed on 10/16/21. She was referred to cardiology, saw Dr. Harrington in the office, EKG revealed sinus tachycardia, Dr. Harrington recommend a treadmill stress test and echocardiogram that was ordered to be done and patient was started on metoprolol succinate 25mg daily. Plan for patient to have this testing done in November. After taking metoprolol she states her symptoms have worsened. She denies syncope, fever, cough, abdominal pain, nausea, vomiting. But does feel a decrease in appetite. She used to drink 3 cups of coffee a day and stopped all caffeine consumption on 09/29/21. She denies any history of CAD, ND, stroke, diabetes, hypertension, or dyslipidemia. Family history includes father has hypertension. She denies daily alcohol use, drinks occasionally, No tobacco use. No illicit drug use. DIAGNOSTICS EKG reveals sinus rhythm, heart rate 76, sinus arrhythmia, no significant ST ST- T wave abnormalities. Prior EKG in the office revealed sinus tachycardia Telemetry tracings indicate sinus rhythm, heart rate 50-70s Chest xray no acute cardiopulmonary process Laboratory reviewed, CBC unremarkable, d-dimer negative, sodium 138, potassium 3.9, BUN 9, serum creatinine 0.7, troponin negative Current home medications include metoprolol succinate 25 mg nightly REVIEW OF SYSTEMS At the time of my exam: CONSTITUTIONAL: Denies fever or chills. CARDIOVASCULAR: Denies chest pain, shortness of breath, orthopnea, PND or palpitations. RESPIRATORY: Denies cough. GASTROINTESTINAL: Denies abdominal pain, diarrhea, constipation, nausea or vomiting. MUSCULOSKELETAL: Denies myalgias. NEUROLOGIC: Denies numbness, tingling, headache or weakness. ENDOCRINE: Denies fatigue, weight change, polydipsia or polyurina. GENITOURINARY: Denies burning, hematuria or urgency with micturation. HEMATOLOGIC: Denies history of anemia or bleeding. PHYSICAL EXAMINATION Blood pressure 124/69 HR 80 afebrile 98% on room air CONSTITUTIONAL: No apparent distress. HEENT: Head is normocephalic. Pupils are equal, round. Sclerae anicteric. Mucous membranes of the mouth are moist. No JVD. No carotid bruit. CHEST EXAMINATION: Lungs are clear to auscultation. No chest wall tenderness is noted on palpation or with deep breathing. HEART EXAMINATION: Regular rate and rhythm. S1, S2 heard. No murmurs, gallops or rub. ABDOMEN: Soft, nontender. Positive bowel sounds. EXTREMITIES: 2+ peripheral pulses, no lower extremity edema and no calf tenderness. SKIN: warm, dry NEUROLOGIC EXAMINATION: Patient is awake, alert and oriented x3. ASSESSMENT Palpitations, unclear etiology at this time Chest pain, atypical, acute coronary syndrome has been ruled out History of hypothyroidism History of Asthma PLAN -An acute coronary event has been ruled out with no EKG evidence of ischemia and negative cardiac enzymes. -Unclear etiology for palpitations at this time. No arrhythmia, tachycardia or bradycardia noted on telemetry. Patient states she takes metoprolol succinate and ever since starting the medications her symptoms have worsened and she feels increased lightheadedness. We will stop metoprolol -Obtain 2D echocardiogram and doppler study to assess cardiac structure and function. -Perform treadmill exercise test to assess for stress induced cardiac ischemia. -We will attempt to get report for patient's recent 7 day event monitor ordered by her PCP Dr. Colindres in [place]. Follow up with Dr. Harrington Thank you kindly for this consultation. Nurse practitioner note has been reviewed by physician. Signing provider agrees with the documented findings, assessment, and plan of care. Past Medical History Past Medical History: Thyroid Disorder Additional Past Medical History / Comment(s): tachycardia History of Any Multi-Drug Resistant Organisms: None Reported Past Surgical History: Bariatric Surgery, Cholecystectomy, Tonsillectomy Additional Past Surgical History / Comment(s): lap band surgery 2009 Past Anesthesia/Blood Transfusion Reactions: No Reported Reaction Past Psychological History: No Psychological Hx Reported Smoking Status: Never smoker Past Alcohol Use History: None Reported Past Drug Use History: None Reported Medications and Allergies Home Medications Medication Instructions Recorded Confirmed Type Multivitamins, Thera [Multivitamin 1 tab PO DAILY 01/24/18 10/17/21 History (formulary)] Cetirizine HCl [Zyrtec] 10 mg PO DAILY 04/14/19 10/17/21 History Ergocalciferol [Vitamin D2 (1250 1,250 mcg PO MO 10/05/21 10/17/21 History Mcg = 21908 Iu)] Levothyroxine Sodium [Synthroid] 100 mcg PO DAILY 10/05/21 10/17/21 History Metoprolol Succinate [Toprol XL] 25 mg PO HS 10/14/21 10/17/21 History Allergies Allergy/AdvReac Type Severity Reaction Status Date / Time codeine Allergy Unknown Verified 10/17/21 11:50 Childhood Penicillins Allergy Unknown Verified 10/17/21 11:50 Childhood Physical Exam Vitals: Vital Signs Temp Pulse Resp BP Pulse Ox 10/17/21 13:20 80 18 124/69 98 10/17/21 09:31 98.5 F 84 18 151/82 100 Intake and Output 10/16/21 10/17/21 10/17/21 22:59 06:59 14:59 Other: Weight 97.522 kg Results 10/17/21 09:53 10/17/21 09:53 Cardiac Enzymes 10/17/21 10/17/21 Range/Units 09:53 09:53 AST 33 (14-36) U/L Troponin I <0.012 (0.000-0.034) ng/mL Coagulation 10/17/21 Range/Units 09:53 PT 11.0 (9.0-12.0) sec APTT 24.7 (22.0-30.0) sec CBC 10/17/21 Range/Units 09:53 WBC 7.7 (3.8-10.6) k/uL RBC 5.21 (3.80-5.40) m/uL Hgb 14.9 (11.4-16.0) gm/dL Hct 44.3 (34.0-46.0) % Plt Count 305 (150-450) k/uL Comprehensive Metabolic Panel 10/17/21 Range/Units 09:53 Sodium 138 (137-145) mmol/L Potassium 3.9 (3.5-5.1) mmol/L Chloride 107 (98-107) mmol/L Carbon Dioxide 21 L (22-30) mmol/L BUN 9 (7-17) mg/dL Creatinine 0.76 (0.52-1.04) mg/dL Glucose 104 H (74-99) mg/dL Calcium 9.4 (8.4-10.2) mg/dL AST 33 (14-36) U/L ALT 36 H (4-34) U/L Alkaline Phosphatase 67 (38-126) U/L Total Protein 8.4 H (6.3-8.2) g/dL Albumin 4.9 (3.5-5.0) g/dL Current Medications Generic Name Dose Route Start Last Admin Trade Name Freq PRN Reason Stop Dose Admin Aspirin 325 mg 10/18/21 09:00 Aspirin 325 Mg Tab PO DAILY ANDREAS Intake and Output 10/16/21 10/17/21 10/17/21 22:59 06:59 14:59 Other: Weight 97.522 kg Patient Weight 10/18/21 06:59 Weight 97.522 kg 10/17/21 09:53 10/17/21 09:53
--- NOTE | 2021-10-18 11:45 | ECHOF ---
Referral Reason:palpitations, eval structure and function of heart MEASUREMENTS -------- HEIGHT: 160.0 cm WEIGHT: 97.5 kg BP: RVIDd: 2.3 cm (< 3.3) IVSd: 1.1 cm (0.6 - 1.1) LVIDd: 4.0 cm (3.9 - 5.3) LVPWd: 1.1 cm (0.6 - 1.1) IVSs: 1.3 cm LVIDs: 2.6 cm LVPWs: 1.5 cm LA Diam: 2.5 cm (2.7 - 3.8) LAESV Index (A-L): 20.26 ml/m Ao Diam: 3.2 cm (2.0 - 3.7) AV Cusp: 1.8 cm (1.5 - 2.6) MV EXCURSION: 19.089 mm (> 18.000) MV EF SLOPE: 101 mm/s (70 - 150) EPSS: 0.0 cm MV E Dean: 0.89 m/s MV DecT: 181 ms MV A Dean: 0.59 m/s MV E/A Ratio: 1.50 RAP: 5.00 mmHg RVSP: 24.33 mmHg FINDINGS -------- Sinus rhythm. This was a technically good study. LV size, wall thickness and systolic function are normal, with an EF greater than 55%. The left ruchi tricular size is normal. The right ventricle is normal in size. The left atrial size is normal. The right atrial size is normal. The aortic valve is trileaflet, and appears structurally normal. No aortic stenosis or regurgitation. Mild mitral regurgitation is present. Mild tricuspid regurgitation present. Right ventricular systolic pressure is normal at < 35 mmHg. There is no pulmonic regurgitation present. There is no pericardial effusion. CONCLUSIONS -------- 1. LV size, wall thickness and systolic function are normal, with an EF greater than 55%. 2. The left ventricular size is normal. 3. The right ventricle is normal in size. 4. The left atrial size is normal. 5. The right atrial size is normal. 6. The aortic valve is trileaflet, and appears structurally normal. No aortic stenosis or regurgitati on. 7. Mild mitral regurgitation is present. 8. Mild tricuspid regurgitation present. 9. There is no pericardial effusion. CELLOPHANE WRAPPING EXAMINER: Geraldine Zelaya RDCS
[2021-10-18] MEDS ORDERED: LACTATED RINGERS 1,000 ML IV SCH (12:18)
[2021-10-18] MEDS ORDERED: LIDOCAINE 1% (10MG/ML) FOR IV START INTRADERMA PRN (12:18)
--- NOTE | 2021-10-18 12:37 | P.STRESS ---
- Stress Test Note Stress Test Results/Findings: Exam Performed: Exam Date: Reason for Exam: Height: 5 ft 3 in Weight: 97.522 kg Protocol: Stage: Duration of Exercise: Resting Heart Rate: Resting Blood Pressure: Maximum Achieved Heart Rate: Maximum Achieved Blood Pressure: 85% PMHR: 100% PMHR: METS: Technologist Comment: Stress Test Results/Findings: This is a 41-year-old female who was admitted to the hospital with complaints of chest pain and palpitations. Stress data: Baseline EKG showed sinus rhythm. Blood pressure at rest is 107/64 with pulse rate of 15. Patient walked on the [place] protocol for 6 minutes achieving a maximum rate of 171 with a blood pressure of 205/62. EKGs taken during and after x-ray did not reveal changes of ischemia. Patient complained of shortness of breath necessitating termination of the test. Final impression: #1. Negative stress test #2. Patient did not experience any chest pain #3. No arrhythmias noted . #4. Exercise capacity is below average
--- NOTE | 2021-10-18 14:54 | P.DS ---
<Brando Torrez - Last Filed: 10/18/21 14:54> Providers Expected date of discharge: 10/18/21 Hospital Course: Discharge Diagnosis: Palpitations, acute coronary event ruled out cardiology discontinued metoprolol. Decreased exercise tolerance and shortness of breath with exercise/exertion, recommend following up with library sales consultant outpatient for further testing and possible pulmonary function tests. Hypothyroidism, Continue daily medication regimen with levothyroxine 100 g each morning. Hospital Course: Patient is a very pleasant 41-year-old female with a past medical history of hypothyroidism along with surgical history of gastric lap band surgery, cholecystectomy, and tonsillectomy. She presented to the emergency department with a chief complaint of palpitations. Patient reports these palpitations approximately 3 weeks ago and have intermittently waxed and waned occurring 2-3 times per day. Patient has been evaluated in the emergency department on 2 previous occasions and has been referred to cardiology where she had a Holter monitor 1 week and is currently awaiting on results. Patient states she was recently started on metoprolol 25 mg daily and has a scheduled echocardiogram and stress test next month. Patient states these palpitations seem to occur more frequently and lasting longer and have been accompanied by nausea associated return to the emergency department for evaluation. In the emergency department, patient was seen and fully evaluated. An EKG was completed showing normal sinus rhythm at 76 bpm with no noted T-wave or ST abnormalities. Chest x-ray was completed negative for acute cardiopulmonary process. Labs completed with CBC, coags, BMP, liver profile, and magnesium all unremarkable. D-dimer was negative at 0.34 and troponin was also negative at less than 0.012. Urinalysis negative for blood or infection. TSH drawn 10/14/21 normal findings at 2.730. Patient was admitted to observation unit under our services with consultation to cardiology. She was monitored throughout the night with continuous telemetry monitoring. In the morning and she was evaluated by cardiology and underwent an echocardiogram and stress test. Stress test was reported as a negative stress test as patient did not experiencing any chest pain or arrhythmias with a reported below average exercise capacity. Echocardiogram also completed revealing a normal EF greater than 55% with mild mitral and tricuspid regurgitation. Vital signs unremarkable throughout admission. Labs unremarkable. Troponins were trended and all less than 0.0123 occurrences. Lipid profile unremarkable. Patient is medically stable for discharge home at this time, cardiology recommending follow up in their office in one week. Patient reports concerns with decreased exercise tolerance and shortness of breath with exercise and overexertion, we discussed following up outpatient with library sales consultant for pulmonary function tests. Patient medically stable and discharged at this time. Cardiology discontinued metoprolol and recommend follow-up in office in 1 week and will review Holter monitor results. Physical exam: Vital signs reviewed and stable. General: Nontoxic, no distress and appears stated age. Derm: Skin warm and dry, normal coloration for ethnicity. Head: Atraumatic, normocephalic and symmetric. Eyes: EOMs intact, no lid lag, and anicteric sclera Mouth: no lip lesions, mucus membranes moist Cardiovascular: regular rate and rhythm with normal S1S2, no murmur, positive posterior tibial pulses bilaterally, and cap refill < 2 seconds. Lungs: Respirations even, regular, and unlabored on room air. Lungs CTA bilaterally, no rhonchi, no rales, no wheezing, and no accessory muscle usage. Abdominal: soft, nontender to palpation, no guarding, no appreciable organo megaly Ext: ROM intact. No gross muscle atrophy, no edema, no contractures Neuro: Speech clear, face symmetrical and CN II-XII grossly intact with no noted focal neuro deficits Psych: Alert and oriented to person, place, time, and situation. Appropriate and pleasant affect. A total of 35 minutes of time were spent preparing this complex discharge summary. Patient Condition at Discharge: Stable Plan - Discharge Summary New Discharge Prescriptions: Continue Multivitamins, Thera [Multivitamin (formulary)] 1 tab PO DAILY Cetirizine HCl [Zyrtec] 10 mg PO DAILY Ergocalciferol [Vitamin D2 (1250 Mcg = 48260 Iu)] 1,250 mcg PO MO Levothyroxine Sodium [Synthroid] 100 mcg PO DAILY Discontinued Metoprolol Succinate [Toprol XL] 25 mg PO HS Discharge Medication List Multivitamins, Thera [Multivitamin (formulary)] 1 tab PO DAILY 01/24/18 [History] Cetirizine HCl [Zyrtec] 10 mg PO DAILY 04/14/19 [History] Ergocalciferol [Vitamin D2 (1250 Mcg = 50490 Iu)] 1,250 mcg PO MO 10/05/21 [History] Levothyroxine Sodium [Synthroid] 100 mcg PO DAILY 10/05/21 [History] Follow up Appointment(s)/Referral(s): Ted Vides MD [Primary Care Provider] - 1-2 days Glen Harrington MD [Family Provider] - 10/26/21 1:45 pm Herminia Huerta MD [STAFF PHYSICIAN] - 2 Weeks (Schedule and establish care with library sales consultant, may consider PFTs secondary to reports of dyspnea with exertion.) Patient Instructions/Handouts: Chest Pain (DC) Activity/Diet/Wound Care/Special Instructions: Activity: As tolerated. Take breaks as needed. Diet: Heart healthy and carb consistent diet. Avoid salts, or foods with hidden salts such as canned or boxed foods and frozen dinners. Extra salt makes your heart work harder and traps the fluid in your body for longer. Special Instructions: Take all of your medications as directed and remember to keep all of your doctor's appointments and follow-up as needed. Thank you for allowing us to participate in your care, it was truly a pleasure having you for our patient!!! Discharge Disposition: HOME SELF-CARE <Ondina Olivas - Last Filed: 10/18/21 17:46> Providers Date of admission: 10/17/21 13:17 Attending physician: Ondina Olivas DO Consults: 10/17/21 13:26 Consult Physician Routine Consulting Provider: [facility] Consult Reason/Comments: chest pain, palpitations Do you want consulting provider notified?: Yes Primary care physician: Ted Vides [facility] Course: Brando Torrez NP rendered care for this patient independently, reviewed the findings and plan as documented in the note above. I did not physically speak with or examine the patient on this date.
== END 2021-10-18 14:42 | disposition home or self-care (01) ==
LOC: EC 08:59 → 1SOBS 13:17 → 6NMEDSUR 18:00
PROVIDERS: ADMIT Internal Medicine; ATTEND Internal Medicine
DX: R00.2 Palpitations (principal); R07.89 Other chest pain; R00.0 Tachycardia, unspecified; R68.83 Chills (without fever); R06.02 Shortness of breath; R11.0 Nausea; R42 Dizziness and giddiness; E03.9 Hypothyroidism, unspecified; Z20.822 Contact with and (suspected) exposure to COVID-19; J45.909 Unspecified asthma, uncomplicated; I08.1 Rheumatic disorders of both mitral and tricuspid valves; Z88.0 Allergy status to penicillin; Z88.5 Allergy status to narcotic agent; Z79.890 Hormone replacement therapy; Z98.84 Bariatric surgery status; Z71.3 Dietary counseling and surveillance; Z90.49 Acquired absence of other specified parts of digestive tract; Z82.49 Family history of ischemic heart disease and other diseases of the circulatory system
CPT/HCPCS: 99285; 96376; 96361; 96374; 36415; 93005 ×2; 93017; 93306; 85379; 80061; 80053; 83735; 84484; 85025; 85610; 85730; 81001; 81025; 71046; G0378 ×2; J2405

== ENCOUNTER 2021-10-19 08:36 | Day surgery (SDC) | payer OTHER ==
[2021-10-19 09:29] VITALS: TEMP 97.8
[2021-10-19] MEDS ORDERED: LACTATED RINGERS 1,000 ML IV ONE ×2 (09:39)
[2021-10-19] MEDS ORDERED: LIDOCAINE 1% (10MG/ML) FOR IV START INTRADERMA ONE (09:40)
--- NOTE | 2021-10-19 09:41 | P.GSHP ---
History of Present Illness H&P Date: 10/19/21 Chief Complaint: GERD This a 41-year-old female with history of LAP-BAND surgery. Patient's had complaints of GERD. She presents today for EGD Past Medical History Past Medical History: Thyroid Disorder Additional Past Medical History / Comment(s): tachycardia History of Any Multi-Drug Resistant Organisms: None Reported Past Surgical History: Bariatric Surgery, Cholecystectomy, Tonsillectomy Additional Past Surgical History / Comment(s): lap band surgery 2009 Past Anesthesia/Blood Transfusion Reactions: No Reported Reaction Past Psychological History: No Psychological Hx Reported Smoking Status: Never smoker Past Alcohol Use History: None Reported Past Drug Use History: None Reported Medications and Allergies Home Medications Medication Instructions Recorded Confirmed Type Multivitamins, Thera [Multivitamin 1 tab PO DAILY 01/24/18 10/19/21 History (formulary)] Cetirizine HCl [Zyrtec] 10 mg PO DAILY 04/14/19 10/19/21 History Ergocalciferol [Vitamin D2 (1250 1,250 mcg PO MO 10/05/21 10/19/21 History Mcg = 41203 Iu)] Levothyroxine Sodium [Synthroid] 100 mcg PO DAILY 10/05/21 10/19/21 History Allergies Allergy/AdvReac Type Severity Reaction Status Date / Time codeine Allergy Unknown Verified 10/19/21 09:19 Childhood Penicillins Allergy Unknown Verified 10/19/21 09:19 Childhood Surgical - Exam Vital Signs Temp Pulse Resp BP Pulse Ox 97.8 F 92 18 132/83 100 10/19/21 09:24 10/19/21 09:24 10/19/21 09:24 10/19/21 09:24 10/19/21 09:24 - General well developed, well nourished, no distress - Eyes PERRL - ENT normal pinna - Neck no masses - Respiratory normal expansion - Cardiovascular Rhythm: regular - Abdomen Abdomen: soft, non tender Assessment and Plan Assessment: GERD. We'll perform EGD.
[2021-10-19] MEDS ORDERED: LIDOCAINE 1% INJ 10MG/ML (20 ML MDV) ONE (09:45)
[2021-10-19] MEDS ORDERED: PROPOFOL 10 MG/ML 20 ML VIAL IV ONE (09:45)
--- NOTE | 2021-10-19 09:53 | P.OP ---
Date of Procedure: 10/19/21 Preoperative Diagnosis: GERD Postoperative Diagnosis: GERD Mild antral gastritis Procedure(s) Performed: EGD Anesthesia: MAC Surgeon: Keshav Hilliard Pathology: other (Antrum, esophagus) Condition: stable Disposition: PACU Description of Procedure: The patient's placed on the endoscopy table in the lateral position. She received IV sedation. The gastroscope placed oropharynx passed in the esophagus and stomach. Scope then placed through the pylorus. The first and second portion of the duodenum appeared normal. Scope was then brought back the antrum and this was mildly inflamed. A biopsies performed. The scope was then retroflexed and the remainder of the stomach appeared normal. GE junction was at 47 is. Patient appears placed LAP-BAND device this was without evidence of inflammation or erosion. The distal esophagus appeared mildly inflamed. A biopsies performed. The scope was brought back and the proximal esophagus. Scope withdrawn for patient.
[2021-10-19 10:12] VITALS: BP 106/58; PULSE 78; RESP 15
== END 2021-10-19 10:24 | disposition home or self-care (01) ==
LOC: ORWHC2ENDO 08:36
PROVIDERS: ATTEND Surgery
DX: K29.50 Unspecified chronic gastritis without bleeding (principal); K21.9 Gastro-esophageal reflux disease without esophagitis; E07.9 Disorder of thyroid, unspecified; R00.0 Tachycardia, unspecified; J45.909 Unspecified asthma, uncomplicated; J30.2 Other seasonal allergic rhinitis; Z98.84 Bariatric surgery status; Z90.49 Acquired absence of other specified parts of digestive tract; Z98.890 Other specified postprocedural states; Z79.899 Other long term (current) drug therapy; Z79.890 Hormone replacement therapy; Z88.5 Allergy status to narcotic agent; Z88.0 Allergy status to penicillin
CPT/HCPCS: 81025; 88305; 88312; 43239; J2001; J2704

== ENCOUNTER 2021-10-19 17:06 | Emergency (ER) | payer OTHER ==
[2021-10-19 17:42] VITALS: TEMP 98.2
[2021-10-19 18:58] LABS: Basophils % (A) 0 %; Eosinophils # (A) 0.1 k/uL (0-0.7); Eosinophils % (A) 1 %; HCT 43.3 % (34.0-46.0); HGB 14.9 gm/dL (11.4-16.0); Lymphocytes # (A) 2.1 k/uL (1.0-4.8); Lymphocytes % (A) 23 %; MCH 28.8 pg (25.0-35.0); MCHC 34.5 g/dL (31.0-37.0); MCV 83.3 fL (80.0-100.0); Mean Platelet Volume 7.4; Monocytes # (A) 0.4 k/uL (0-1.0); Monocytes % (A) 5 %; Neutrophils # (A) 6.2 k/uL (1.3-7.7); Neutrophils % (A) 69 %; Platelet Count 332 k/uL (150-450); RDW 13.6 % (11.5-15.5); WBC 8.9 k/uL (3.8-10.6)
[2021-10-19 19:06] LABS: Prothrombin Time 11.3 sec (9.0-12.0)
[2021-10-19 19:18] LABS: ALT 42 U/L (4-34); AST 33 U/L (14-36); African American GFR (CKD) >90 (>60 ml/min/1.73 sqM); Alkaline Phosphatase 70 U/L (38-126); Anion Gap 15 mmol/L; Blood Urea Nitrogen 9 mg/dL (7-17); Calcium 9.5 mg/dL (8.4-10.2); Carbon Dioxide 18 mmol/L (22-30); Chloride 107 mmol/L (98-107); Glucose 90 mg/dL (74-99); Magnesium 1.9 mg/dL (1.6-2.3); Non-African American GFR(CKD) >90 (>60 ml/min/1.73 sqM); Potassium 3.7 mmol/L (3.5-5.1); Sodium 140 mmol/L (137-145); Total Bilirubin 0.7 mg/dL (0.2-1.3); Total Protein 8.3 g/dL (6.3-8.2)
[2021-10-19] MEDS ORDERED: ASPIRIN 81 MG PO STA (20:06)
--- NOTE | 2021-10-19 20:19 | XR ---
EXAMINATION TYPE: XR chest 2V DATE OF EXAM: 10/19/2021 7:48 PM COMPARISON: 10/17/2021 TECHNIQUE: XR chest 2V Frontal and lateral views of the chest. CLINICAL INDICATION:Female, 41 years old with history of chest pain; FINDINGS: Lungs/Pleura: There is no evidence of pleural effusion, focal consolidation, or pneumothorax. Pulmonary vascularity: Unremarkable. Heart/mediastinum: Cardiomediastinal silhouette is unremarkable. Musculoskeletal: No acute osseous pathology. IMPRESSION: No acute cardiopulmonary disease/process.
[2021-10-19] MEDS ORDERED: NALOXONE 0.4 MG/ML 1 ML VIAL IV PRN (21:03)
[2021-10-19 21:08] VITALS: RESP 16
--- NOTE | 2021-10-19 21:11 | ED ---
General Adult HPI - General Chief complaint: Chest Pain Stated complaint: Hypertensive Time Seen by Provider: 10/19/21 18:02 Source: patient, RN notes reviewed, old records reviewed Mode of arrival: ambulatory Limitations: no limitations - History of Present Illness Initial comments: Patient is a 41-year-old female with past medical history remarkable for hypothyroidism on Synthroid presents emergency Department complaining of chronic tachycardia. She states that she has noticed over the last 4-5 weeks she has been having increasing episodes of intermittent palpitations. She states that when this happens, she "feels unwell.". She checks her blood pressure and it is elevated, she states up to 140 systolic. She states this is high for her. She denies any recent weight loss. Denies any changes in her Synthroid dosing. States she occasionally will be short of breath when she has the palpitations. She has received the prior workup, including outpatient cardiology follow-up. She recently had an outpatient hospital monitor for 1 week, which revealed normal sinus rhythm during all the events. There were no arrhythmias or dysrhythmias other than sinus tachycardia. She just completed this evaluation and received the results yesterday. She presents today, she called cardiology who instructed her to come to the emergency department for evaluation. No new symptoms. States she feels improved at this time. I evaluated the patient after she was placed in a room. Workup was started by triage. No known history of blood clots. No orthopnea. No actual syncopal episodes. - Related Data Home Medications Medication Instructions Recorded Confirmed Multivitamins, Thera [Multivitamin 1 tab PO DAILY 01/24/18 10/19/21 (formulary)] Cetirizine HCl [Zyrtec] 10 mg PO DAILY 04/14/19 10/19/21 Ergocalciferol [Vitamin D2 (1250 1,250 mcg PO MO 10/05/21 10/19/21 Mcg = 03368 Iu)] Levothyroxine Sodium [Synthroid] 100 mcg PO DAILY 10/05/21 10/19/21 Previous Rx's Medication Instructions Recorded Omeprazole 40 mg PO DAILY #90 cap 10/19/21 Allergies Allergy/AdvReac Type Severity Reaction Status Date / Time codeine Allergy Unknown Verified 10/19/21 19:52 Childhood Penicillins Allergy Unknown Verified 10/19/21 19:52 Childhood Review of Systems ROS Statement: Those systems with pertinent positive or pertinent negative responses have been documented in the HPI. Review of Systems: CONST: Denies fever EYES: Denies blurry vision ENT: Denies nasal congestion C/V: Denies Chest pain RESP: Denies shortness of breath GI: Denies abdominal pain : Denies dysuria SKIN: Denies rash. MSK: Denies joint pain. NEURO: Denies headache ROS Other: All systems not noted in ROS Statement are negative. Past Medical History Past Medical History: Thyroid Disorder Additional Past Medical History / Comment(s): tachycardia History of Any Multi-Drug Resistant Organisms: None Reported Past Surgical History: Bariatric Surgery, Cholecystectomy, Tonsillectomy Additional Past Surgical History / Comment(s): lap band surgery 2009 Past Anesthesia/Blood Transfusion Reactions: No Reported Reaction Past Psychological History: No Psychological Hx Reported Smoking Status: Never smoker Past Alcohol Use History: None Reported Past Drug Use History: None Reported General Exam Limitations: no limitations Course Vital Signs 10/19/21 10/19/21 10/19/21 17:40 20:45 21:07 Temperature 98.2 F Pulse Rate 102 H 85 Pulse Rate [ 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 She is asymptomatic at this time. She'll be given an aspirin. She was in agreement w ith this plan. EKG showed no signs of acute ischemia. Chest x-ray revealed no acute cardio pulmonary process. Laboratory studies were remarkable for a d-dimer within normal limits. Troponin is negative. Remainder the labs are unremarkable. On reevaluation, patient remains asymptomatic. Initially, was unclear if the patient had access to results of her cardiac monitoring. Therefore the plan was to admit her to observation for telemetry monitoring and evaluation by cardiology. However the patient was able to find the results. We were able to review them and it did reveal normal sinus rhythm during all noted episodes on the monitor. I discussed this with her. As we will be continuing essentially the same monitoring for 1 more day, and she just finished her monitoring yesterday or the day before, I discussed with her the low benefits of the admitting her versus the benefits of outpatient follow-up. We agreed that outpatient follow-up was mobile he would prefer. Admission was canceled. Patient will be discharged home in good condition. She was in agreement this plan. Strict return precautions. Advised her to follow-up with her assembler trim and PCP. I instructed the patient to follow up with their PCP in the next 3 days. I explained that the patient should return to the emergency department if they experience any worsening symptoms. Strict return precautions were discussed with the patient. The patient expressed understanding of these instructions. I answered all questions that the patient had. The patient was discharged home in good condition with their prescriptions and follow up information. - Lab Data Result diagrams: 10/19/21 18:16 10/19/21 18:16 Lab Results 10/19/21 10/19/21 10/19/21 Range/Units 18:16 18:16 18:16 WBC 8.9 (3.8-10.6) k/uL RBC 5.20 (3.80-5.40) m/uL Hgb 14.9 (11.4-16.0) gm/dL Hct 43.3 (34.0-46.0) % MCV 83.3 (80.0-100.0) fL MCH 28.8 (25.0-35.0) pg MCHC 34.5 (31.0-37.0) g/dL RDW 13.6 (11.5-15.5) % Plt Count 332 (150-450) k/uL MPV 7.4 Neutrophils % 69 % Lymphocytes % 23 % Monocytes % 5 % Eosinophils % 1 % Basophils % 0 % Neutrophils # 6.2 (1.3-7.7) k/uL Lymphocytes # 2.1 (1.0-4.8) k/uL Monocytes # 0.4 (0-1.0) k/uL Eosinophils # 0.1 (0-0.7) k/uL Basophils # 0.0 (0-0.2) k/uL PT 11.3 (9.0-12.0) sec INR 1.0 (<1.2) APTT 25.0 (22.0-30.0) sec D-Dimer (<0.60) mg/L FEU Sodium 140 (137-145) mmol/L Potassium 3.7 (3.5-5.1) mmol/L Chloride 107 (98-107) mmol/L Carbon Dioxide 18 L (22-30) mmol/L Anion Gap 15 mmol/L BUN 9 (7-17) mg/dL Creatinine 0.63 (0.52-1.04) mg/dL Est GFR (CKD-EPI)AfAm >90 (>60 ml/min/1.73 sqM) Est GFR (CKD-EPI)NonAf >90 (>60 ml/min/1.73 sqM) Glucose 90 (74-99) mg/dL Calcium 9.5 (8.4-10.2) mg/dL Magnesium 1.9 (1.6-2.3) mg/dL Total Bilirubin 0.7 (0.2-1.3) mg/dL AST 33 (14-36) U/L ALT 42 H (4-34) U/L Alkaline Phosphatase 70 (38-126) U/L Troponin I (0.000-0.034) ng/mL Total Protein 8.3 H (6.3-8.2) g/dL Albumin 5.0 (3.5-5.0) g/dL TSH (0.465-4.680) mIU/L 10/19/21 10/19/21 10/19/21 Range/Units 18:16 18:16 18:18 WBC (3.8-10.6) k/uL RBC (3.80-5.40) m/uL Hgb (11.4-16.0) gm/dL Hct (34.0-46.0) % MCV (80.0-100.0) fL MCH (25.0-35.0) pg MCHC (31.0-37.0) g/dL RDW (11.5-15.5) % Plt Count (150-450) k/uL MPV Neutrophils % % Lymphocytes % % Monocytes % % Eosinophils % % Basophils % % Neutrophils # (1.3-7.7) k/uL Lymphocytes # (1.0-4.8) k/uL Monocytes # (0-1.0) k/uL Eosinophils # (0-0.7) k/uL Basophils # (0-0.2) k/uL PT (9.0-12.0) sec INR (<1.2) APTT (22.0-30.0) sec D-Dimer 0.36 (<0.60) mg/L FEU Sodium (137-145) mmol/L Potassium (3.5-5.1) mmol/L Chloride (98-107) mmol/L Carbon Dioxide (22-30) mmol/L Anion Gap mmol/L BUN (7-17) mg/dL Creatinine (0.52-1.04) mg/dL Est GFR (CKD-EPI)AfAm (>60 ml/min/1.73 sqM) Est GFR (CKD-EPI)NonAf (>60 ml/min/1.73 sqM) Glucose (74-99) mg/dL Calcium (8.4-10.2) mg/dL Magnesium (1.6-2.3) mg/dL Total Bilirubin (0.2-1.3) mg/dL AST (14-36) U/L ALT (4-34) U/L Alkaline Phosphatase (38-126) U/L Troponin I <0.012 (0.000-0.034) ng/mL Total Protein (6.3-8.2) g/dL Albumin (3.5-5.0) g/dL TSH 1.320 (0.465-4.680) mIU/L - EKG Data -: EKG Interpreted by Me EKG Comments: 12-lead Electrocardiogram Interpretation Note EKG was reviewed and interpreted by myself. 12-lead ECG performed at 1816 is interpreted by me as revealing normal sinus rhythm at a rate of 86 beats per minute. [place] is normal. DC interval is 134 ms, QRS duration is 81 ms, QTc is 386 miliseconds.. There were no ST or T wave abnormalities to suggest myocardial ischemia or injury. R wave progression across the precordium was satisfactory. By my interpretation this EKG is non-diagnostic for acute ischemia. Disposition Clinical Impression: Palpitations Disposition: HOME SELF-CARE Condition: Good Is patient prescribed a controlled substance at d/c from ED?: No
[2021-10-19 22:52] VITALS: BP 110/78; PULSE 80
[2021-10-20] MEDS ORDERED: HEPARIN SODIUM,PORCINE/PF 5,000 UNIT/0.5 ML SYRINGE SQ SCH
[2021-10-20] MEDS ORDERED: LEVOTHYROXINE 100 MCG TAB PO SCH (06:30)
[2021-10-20] MEDS ORDERED: PANTOPRAZOLE 40 MG TABLET PO SCH (09:00)
[2021-10-20] MEDS ORDERED: LORATADINE 10 MG TAB PO SCH (09:00)
== END 2021-10-19 23:03 | disposition home or self-care (01) ==
LOC: EC 17:06 → 6NMEDSUR 21:06 → UNDOADMOB 21:06 → 6NMEDSUR 21:57 → UNDODISOB 23:03 → EC 23:03
DX: R00.2 Palpitations (principal); E07.9 Disorder of thyroid, unspecified; Z88.5 Allergy status to narcotic agent; Z88.0 Allergy status to penicillin; Z90.49 Acquired absence of other specified parts of digestive tract; Z98.84 Bariatric surgery status
CPT/HCPCS: 36415; 71046; 80053; 83735; 84443; 84484; 85025; 85379; 85610; 85730; 93005; 99285

== ENCOUNTER → 2021-10-23 | Outpatient (CLI) | payer OTHER ==
[2021-10-23 15:13] VITALS: BP 128/84; PULSE 121; TEMP 98; BMI 36.4
--- NOTE | 2021-10-23 15:40 | P.HPBAR ---
Bariatric H&P - History & Physicial H&P Date: 10/23/21 History & Physicial: Visit/CC: lap band follow up Patient initial contact: Initial weight: 83.971 kg Initial weight in pounds: 185.12 Height: 5 ft 2.75 in Initial BMI: 33.0 Last weight: Current weight: 92.533 kg Current weight in pounds: 204.00 Current BMI: 36.4 [place] body weight (based on NIH guidelines): 51.596 kg Excess body weight loss: The patient is a 41 year-old F who presents for Bariatric Assessment. Patient resents today for bariatric follow-up. She states that her GERD has improved since starting omeprazole. She underwent recent EGD last week which shows evidence of esophagitis. Past Medical History Past Medical History: Thyroid Disorder Additional Past Medical History / Comment(s): tachycardia History of Any Multi-Drug Resistant Organisms: None Reported Past Surgical History: Bariatric Surgery, Cholecystectomy, Tonsillectomy Additional Past Surgical History / Comment(s): lap band surgery 2010 Past Anesthesia/Blood Transfusion Reactions: No Reported Reaction Smoking Status: Never smoker Surgical - Exam Vital Signs Temp Pulse BP 98 F 121 H 128/84 10/23/21 15:08 10/23/21 15:08 10/23/21 15:08 - General well developed, well nourished, no distress - Eyes PERRL - ENT normal pinna - Neck no masses - Cardiovascular Rhythm: regular - Abdomen Abdomen: soft, non tender Bariatric Assessment & Plan Plan: Status post lap band procedure. Patient's GERD is improved with omeprazole. Patient will need to have revision of her LAP-BAND port. In order to adjust her port. This is tender scheduled for later this month. Bariatric Checklist Checklist: Plan: Checklist: EGD: 1. Hiatal hernia: 2. H. Pylori: HgbA1c: Vitamin D: Smoking: Never smoker Primary care physician referral: Dr Kristy Burgess Psychiatry clearance: Cardiology clearance: Sleep study: Diet journal: VTE risk score: VTE risk level: Rehab needs at discharge:
== END ==
LOC: BARWHC3 13:57
PROVIDERS: ATTEND Surgery
DX: Z09 Encounter for follow-up examination after completed treatment for conditions other than malignant neoplasm (principal); Z98.84 Bariatric surgery status; Z88.0 Allergy status to penicillin; Z88.5 Allergy status to narcotic agent
CPT/HCPCS: 99211

== ENCOUNTER → 2021-11-27 | Outpatient (CLI) | payer OTHER ==
[2021-11-27 13:41] VITALS: BP 130/83; PULSE 92; RESP 16; TEMP 98.1; BMI 35.5
--- NOTE | 2022-02-23 10:42 | P.HPBAR ---
Bariatric H&P - History & Physicial H&P Date: 11/27/21 History & Physicial: Visit/CC: lap band f/u Patient initial contact: Initial weight: 83.971 kg Initial weight in pounds: 185.12 Height: 5 ft 2.75 in Initial BMI: 33.0 Last weight: Current weight: 90.265 kg Current weight in pounds: 199.00 Current BMI: 35.5 [place] body weight (based on NIH guidelines): 51.596 kg Excess body weight loss: The patient is a 42 year-old F who presents for Bariatric Assessment. Patient resents today for bariatric follow-up. She has some minimal complaints of GERD. She's had a port replacement recently Past Medical History Past Medical History: GERD/Reflux, Thyroid Disorder Additional Past Medical History / Comment(s): past hx. tachycardia History of Any Multi-Drug Resistant Organisms: None Reported Past Surgical History: Bariatric Surgery, Cholecystectomy, Tonsillectomy Additional Past Surgical History / Comment(s): lap band surgery 2009, EGD. lap band port replacement 11-20-21 Past Anesthesia/Blood Transfusion Reactions: No Reported Reaction Additional Past Anesthesia/Blood Transfusion Reaction / Comm: slow to wake up after general anesthesia Past Psychological History: No Psychological Hx Reported Smoking Status: Never smoker Past Alcohol Use History: None Reported Past Drug Use History: None Reported - Past Family History Mother Family Medical History: No Reported History Surgical - Exam Vital Signs Temp Pulse Resp BP 98.1 F 92 16 130/83 11/27/21 13:39 11/27/21 13:39 11/27/21 13:39 11/27/21 13:39 - General well developed, well nourished, moderate distress - Eyes PERRL - ENT normal pinna - Neck no masses - Respiratory normal expansion - Cardiovascular Rhythm: regular - Abdomen Abdomen: soft, non tender Bariatric Assessment & Plan Plan: Status post lap band surgery. Patient has some minimal GERD. This is a be observed. She'll follow-up in 4 weeks. She was not adjusted Bariatric Checklist Checklist: Plan: Checklist: EGD: 1. Hiatal hernia: 2. H. Pylori: HgbA1c: Vitamin D: Smoking: Never smoker Primary care physician referral: Dr Kristy Burgess Psychiatry clearance: Cardiology clearance: Sleep study: Diet journal: VTE risk score: VTE risk level: Rehab needs at discharge:
== END ==
LOC: BARWHC3 13:15
PROVIDERS: ATTEND Surgery
DX: Z09 Encounter for follow-up examination after completed treatment for conditions other than malignant neoplasm (principal); K21.9 Gastro-esophageal reflux disease without esophagitis; Z98.84 Bariatric surgery status; Z88.0 Allergy status to penicillin; Z88.5 Allergy status to narcotic agent
CPT/HCPCS: 99211

== ENCOUNTER → 2021-12-11 | Outpatient (CLI) | payer OTHER ==
[2021-12-11 14:28] VITALS: BP 135/78; PULSE 75; TEMP 98; BMI 45.8
--- NOTE | 2021-12-11 15:30 | P.HPBAR ---
Bariatric H&P - History & Physicial H&P Date: 12/11/21 History & Physicial: Visit/CC: lap band follow up Patient initial contact: Initial weight: 83.971 kg Initial weight in pounds: 185.12 Height: 5 ft 3.5 in Initial BMI: 32.3 Last weight: Current weight: 119.295 kg Current weight in pounds: 263.00 Current BMI: 45.8 [place] body weight (based on NIH guidelines): 53.297 kg Excess body weight loss: The patient is a 41 year-old F who presents for Bariatric Assessment. Patient has minimal dysphasia. She states she does have some mild GERD. She is tolerating more food. Past Medical History Past Medical History: GERD/Reflux, Thyroid Disorder Additional Past Medical History / Comment(s): past hx. tachycardia History of Any Multi-Drug Resistant Organisms: None Reported Past Surgical History: Bariatric Surgery, Cholecystectomy, Tonsillectomy Additional Past Surgical History / Comment(s): lap band surgery 2009, EGD. lap band port replacement 11-20-21 Past Anesthesia/Blood Transfusion Reactions: No Reported Reaction Additional Past Anesthesia/Blood Transfusion Reaction / Comm: slow to wake up after general anesthesia Smoking Status: Never smoker - Past Family History Mother Family Medical History: No Reported History Surgical - Exam Vital Signs Temp Pulse BP 98 F 75 135/78 12/11/21 14:27 12/11/21 14:27 12/11/21 14:27 - General well developed, well nourished, no distress - Eyes PERRL - ENT normal pinna - Abdomen Abdomen: soft, non tender Bariatric Assessment & Plan Plan: Status post replacement of LAP-BAND port several weeks ago. Patient's GERD and dysphagia improved. She will currently be observed. She'll follow-up in 2 weeks. Bariatric Checklist Checklist: Plan: Checklist: EGD: 1. Hiatal hernia: 2. H. Pylori: HgbA1c: Vitamin D: Smoking: Never smoker Primary care physician referral: Dr Kristy Burgess Psychiatry clearance: Cardiology clearance: Sleep study: Diet journal: VTE risk score: VTE risk level: Rehab needs at discharge:
== END ==
LOC: BARWHC3 13:32
PROVIDERS: ATTEND Surgery
DX: Z09 Encounter for follow-up examination after completed treatment for conditions other than malignant neoplasm (principal); K21.9 Gastro-esophageal reflux disease without esophagitis; Z98.84 Bariatric surgery status; Z88.5 Allergy status to narcotic agent; Z88.0 Allergy status to penicillin
CPT/HCPCS: 99211

== ENCOUNTER → 2022-01-22 | Outpatient (CLI) | payer OTHER ==
[2022-01-22 13:34] VITALS: BP 108/76; PULSE 77; TEMP 98.3; BMI 35.3
--- NOTE | 2022-01-22 15:48 | P.HPBAR ---
Bariatric H&P - History & Physicial H&P Date: 01/22/22 History & Physicial: Visit/CC: lap band Patient initial contact: Initial weight: 83.971 kg Initial weight in pounds: 185.12 Height: 5 ft 2.75 in Initial BMI: 33.0 Last weight: Current weight: 89.811 kg Current weight in pounds: 198.00 Current BMI: 35.3 [place] body weight (based on NIH guidelines): 51.596 kg Excess body weight loss: The patient is a 42 year-old F who presents for Bariatric Assessment. Patient presents today for. Fall. She's requesting a fill of her LAP-BAND. She currently hungry. Past Medical History Past Medical History: GERD/Reflux, Thyroid Disorder Additional Past Medical History / Comment(s): past hx. tachycardia History of Any Multi-Drug Resistant Organisms: None Reported Past Surgical History: Bariatric Surgery, Cholecystectomy, Tonsillectomy Additional Past Surgical History / Comment(s): lap band surgery 2009, EGD. lap band port replacement 11-20-21 Past Anesthesia/Blood Transfusion Reactions: No Reported Reaction Additional Past Anesthesia/Blood Transfusion Reaction / Comm: slow to wake up after general anesthesia Past Psychological History: No Psychological Hx Reported Smoking Status: Never smoker Past Alcohol Use History: None Reported Past Drug Use History: None Reported - Past Family History Mother Family Medical History: No Reported History Surgical - Exam Vital Signs Temp Pulse BP 98.3 F 77 108/76 01/22/22 13:28 01/22/22 13:28 01/22/22 13:28 - General well developed, well nourished, no distress - Eyes PERRL - Abdomen Abdomen: soft, non tender Bariatric Assessment & Plan Plan: Patient's LAP-BAND was just. She has 2 mL added to her band. She will follow- up in 4 weeks. Bariatric Checklist Checklist: Plan: Checklist: EGD: 1. Hiatal hernia: 2. H. Pylori: HgbA1c: Vitamin D: Smoking: Never smoker Primary care physician referral: Dr Kristy Burgess Psychiatry clearance: Cardiology clearance: Sleep study: Diet journal: VTE risk score: VTE risk level: Rehab needs at discharge:
== END ==
LOC: BARWHC3 13:13
PROVIDERS: ATTEND Surgery
DX: Z46.51 Encounter for fitting and adjustment of gastric lap band (principal); Z88.0 Allergy status to penicillin; Z88.5 Allergy status to narcotic agent
CPT/HCPCS: 99212

== ENCOUNTER → 2022-03-19 | Outpatient (CLI) | payer OTHER ==
[2022-03-19 14:31] VITALS: BP 124/89; PULSE 80; TEMP 98.1; BMI 35.3
--- NOTE | 2022-03-19 14:42 | P.HPBAR ---
Bariatric H&P - History & Physicial H&P Date: 03/19/22 History & Physicial: Visit/CC: lap band Patient initial contact: Initial weight: 83.971 kg Initial weight in pounds: 185.12 Height: 5 ft 2.75 in Initial BMI: 33.0 Last weight: Current weight: 89.811 kg Current weight in pounds: 198.00 Current BMI: 35.3 [place] body weight (based on NIH guidelines): 51.596 kg Excess body weight loss: The patient is a 42 year-old F who presents for Bariatric Assessment. Chin presents for bariatric check. Patient's complaints of pain at her port site. Says the pain is intermittent in nature. Past Medical History Past Medical History: GERD/Reflux, Thyroid Disorder Additional Past Medical History / Comment(s): past hx. tachycardia History of Any Multi-Drug Resistant Organisms: None Reported Past Surgical History: Bariatric Surgery, Cholecystectomy, Tonsillectomy Additional Past Surgical History / Comment(s): lap band surgery 2009, EGD. lap band port replacement 11-20-21 Past Anesthesia/Blood Transfusion Reactions: No Reported Reaction Additional Past Anesthesia/Blood Transfusion Reaction / Comm: slow to wake up after general anesthesia Past Psychological History: No Psychological Hx Reported Smoking Status: Never smoker Past Alcohol Use History: None Reported Past Drug Use History: None Reported - Past Family History Mother Family Medical History: No Reported History Surgical - Exam Vital Signs Temp Pulse BP 98.1 F 80 124/89 03/19/22 14:23 03/19/22 14:23 03/19/22 14:23 - General well developed, well nourished, no distress - Eyes PERRL - ENT normal pinna - Neck no masses - Respiratory normal expansion - Cardiovascular Rhythm: regular - Abdomen Abdomen: soft, non tender Bariatric Assessment & Plan Plan: Patient's abdominal pain is minimal. She does not appear to have any acute pain at her port site. She'll be observed. She'll follow-up in 2 weeks. Bariatric Checklist Checklist: Plan: Checklist: EGD: 1. Hiatal hernia: 2. H. Pylori: HgbA1c: Vitamin D: Smoking: Never smoker Primary care physician referral: Dr Kristy Burgess Psychiatry clearance: Cardiology clearance: Sleep study: Diet journal: VTE risk score: VTE risk level: Rehab needs at discharge:
== END ==
LOC: BARWHC3 13:53
PROVIDERS: ATTEND Surgery
DX: Z09 Encounter for follow-up examination after completed treatment for conditions other than malignant neoplasm (principal); Z98.84 Bariatric surgery status; Z88.5 Allergy status to narcotic agent; Z88.0 Allergy status to penicillin
CPT/HCPCS: 99211

== ENCOUNTER → 2022-03-29 | Outpatient (CLI) | payer OTHER ==
--- NOTE | 2022-03-29 09:26 | FL ---
EXAMINATION TYPE: FL barium swallow, single contrast DATE OF EXAM: 03/29/2022 CLINICAL INDICATION: 42-year-old female R1 3.10, dysphagia. Intermittent abdominal pain. Patient's la p band port were placed earlier this year. COMPARISON: None Total Fluoroscopy Time: 1 minute 29 seconds 26 images obtained. FINDINGS: Initial calculus tutor image shows port projecting at the right mid abdomen. Cholecystectomy clips. The lap ba nd is appropriately positioned in the upper abdomen. The patient swallowed thin barium without difficulty or delay. There is normal course and caliber of the thoracic esophagus. Initially, some tertiary peristaltic contractions are noted distally with mil d intraesophageal reflux and slight delay in complete clearance from the distal esophagus. There is o therwise prompt passage beyond the GE junction and across the lap band into the stomach. At the end of the exam, the patient points to the site of discomfort. This seems to correspond to the right side of the abdomen close to the site of the port. Clinically correlate. Image available for kuldip aviles. IMPRESSION: 1. Good flow across the lap band. No evidence for prolapse. 2. There is some intermittent mild dysmotility in the distal esophagus with slight intraesophageal re flux.
== END | disposition home or self-care (01) ==
LOC: RADUSWWP 07:59
PROVIDERS: ATTEND Surgery
DX: K22.89 Other specified disease of esophagus (principal)
CPT/HCPCS: 74220

== ENCOUNTER → 2024-08-31 | Outpatient (CLI) | payer BC | END | disposition home or self-care (01) | LOC: LABWHC1 13:31 | PROVIDERS: ATTEND Obstetrics & Gynecology | DX: N91.2 Amenorrhea, unspecified (principal) | CPT/HCPCS: 36415; 84702; 86850; 86900; 86901 ==

== ENCOUNTER → 2024-09-02 | Outpatient (CLI) | payer BC | END | disposition home or self-care (01) | LOC: LABWHC1 07:16 | PROVIDERS: ATTEND Obstetrics & Gynecology | DX: Z34.01 Encounter for supervision of normal first pregnancy, first trimester (principal); Z3A.00 Weeks of gestation of pregnancy not specified | CPT/HCPCS: 36415; 84702 ==

== ENCOUNTER → 2024-09-04 | Outpatient (CLI) | payer BC | END | disposition home or self-care (01) | LOC: LABWHC1 07:52 | PROVIDERS: ATTEND Obstetrics & Gynecology | DX: Z34.01 Encounter for supervision of normal first pregnancy, first trimester (principal) | CPT/HCPCS: 36415; 84702 ==

== ENCOUNTER → 2024-09-16 | Outpatient (CLI) | payer BC | END | disposition home or self-care (01) | LOC: LABWHC1 09:15 | PROVIDERS: ATTEND Obstetrics & Gynecology | DX: Z34.01 Encounter for supervision of normal first pregnancy, first trimester (principal) | CPT/HCPCS: 36415; 84144; 84702 ==

== ENCOUNTER → 2024-09-18 | Outpatient (CLI) | payer BC | END | disposition home or self-care (01) | LOC: LABWHC1 08:28 | PROVIDERS: ATTEND Obstetrics & Gynecology | DX: O03.9 Complete or unspecified spontaneous abortion without complication (principal) | CPT/HCPCS: 36415; 84702 ==

== ENCOUNTER → 2024-10-13 | Outpatient (CLI) | payer BC | END | disposition home or self-care (01) | LOC: LABWHC1 07:04 | PROVIDERS: ATTEND Obstetrics & Gynecology | DX: O03.9 Complete or unspecified spontaneous abortion without complication (principal) | CPT/HCPCS: 36415; 84702 ==